=== PATIENT | female | born 1975 | race Caucasian/White ===

== ENCOUNTER 2024-01-02 17:33 | Emergency (ER) | payer SELFPAY ==
[2024-01-02 17:38] VITALS: BP 162/74; PULSE 98; RESP 16; TEMP 36.3; O2SAT 98
--- NOTE | 2024-01-02 17:47 | ED_ITS ---
HPI - Extremity Problem General: Chief complaint: Extremity Problem,Nontraumatic Stated complaint: left foot pain and swollen Time Seen by Provider: 01/02/24 17:34 Source: patient Mode of arrival: ambulatory Limitations: no limitations History of Present Illness: Patient is a nice 48-year-old female presents to ED today with a complaint of left foot/heel pain over the past 5 days or so. She has not had any known injury or trauma. She states pain seems to be worse with weightbearing and does not really have much discomfort at rest. She describes pain as worse in the morning when she first gets out of bed. She has not noticed any swelling to the extremity. She has not noticed any color or temperature changes. Denies numbness or changes in sensation. She is not having any calf pain. MD Complaint: extremity pain Onset (ago): day(s) Pain Consistency: intermittent (with walking/ambulating) Location: left and lower extremity (foot) Radiation: none Relieving factors: rest Exacerbating factors: weight bearing and walking Associated symptoms: Reports no associated symptoms Review of Systems Musc: Reports: extremity pain (L foot); Denies: extremity swelling, joint pain, joint swelling, joint redness or joint warmth Neuro: Denies: numbness in extremities or sensory changes Physical Exam Const: COMMON NORMALS: no acute distress, patient oriented x3, no limitations, alert and well nourished Extremity: COMMON NORMALS: normal to inspection, full ROM, capillary refill normal, no joint enlargement, no clubbing, cyanosis or edema, no calf tenderness and no pedal edema GENERAL: Yes normal exam except as noted LEFT LOWER EXTREMITY: Yes lower leg (no calf pain/swelling; negative Cash's squeeze test) Left lower leg: Yes neurovascular exam (normal) and Yes other (no tenderness to Juan's tendon) and Yes foot & digits (TTP plantar fascia) Left foot and digits: Yes ROM (normal) and Yes neurovascular exam (normal) Neuro: COMMON NORMALS: patient oriented x3, moves all extremities, no focal motor deficits and no sensory deficits noted SENSORIUM/ORIENTATION: Yes alert Course Vital Signs: Vital signs: Vital Signs Temperature 97.4 F L 01/02/24 17:38 Pulse Rate 98 01/02/24 17:38 Respiratory Rate 16 01/02/24 17:38 Blood Pressure 162/74 01/02/24 17:38 Pulse Oximetry 98 01/02/24 17:38 Oxygen Delivery Me thod Room Air 01/02/24 17:38 MDM - Extremity (Nontraumatic) Medical Decision Making History and physical exam is consistent with a left plantar fasciitis. We discussed many conservative therapies at home for this including avoidance of factors. She currently is wearing very poor footwear. We did discuss cushioned footwear including a cushioned heel insert. Discussed NSAIDS. She was provided several handouts on stretches to do at home. Recommend follow up with PCP in 3-4 weeks for continued pain. No radiology studies performed this visit Discharge Plan Discharge Patient Disposition: Home Clinical Impression: Plantar fasciitis of left foot Condition: Stable Discharge Orders: Discharge ED (Routine); Ordered 01/02/24 Ordered By: Susan Buchanan Patient Instructions: Plantar Fasciitis Exercises (GEN), Plantar Fasciitis Exercises (ED), Plantar Fasciitis Activity Restrictions/Additional Instructions: You have been given discharge instructions in regards to plantar fasciitis and things you can do at home to help with this including exercises. You have also been provided additional handouts for these exercises. As we discussed you need to begin wearing a cushioned footwear particularly possibly with a silicone gel heel cushion insert to help with your discomfort. You may take Tylenol and ibuprofen as needed for pain. Coding Level of Care Code ED Microfilm Duplicating Unit Supervisor for Santana Schafer
== END 2024-01-02 18:05 | disposition home or self-care (01) ==
PROVIDERS: Emergency Provider Physician Assistant
DX: M72.2 Plantar fascial fibromatosis (principal)
CPT/HCPCS: 99282

== ENCOUNTER 2024-08-12 20:00 | Emergency (ER) | payer SELFPAY ==
[2024-08-12 20:06] VITALS: BP 106/76; PULSE 101; RESP 20; TEMP 36.7; O2SAT 99; BMI 38.5
--- NOTE | 2024-08-12 20:23 | ED_ITS ---
HPI - Abdominal Pain 2 General: Chief Complaint: Abdominal Pain Stated Complaint: severe pain in low right stomach Time Seen by Provider: 08/12/24 20:15 History of Present Illness: Patient presents to the ER with complaints of right lower quadrant abdominal pain for the last 2 days does come in waves. Patient rates pain a 2 out of 10 all the time but when it pain weight comes she is a 10 out of 10. Patient denies any pain burning frequency dysuria, diarrhea constipation, patient has had a partial hysterectomy with 1 ovary left. Patient does get nauseous when the pain hits. Patient vomited 1 time last night. Pain does increase with movement and vibration in the abdomen patient has had a cholecystectomy but still has her appendix. Related Data Allergies Allergy/AdvReac Type Severity Reaction Status Date / Time calcium carbonate [From DHEA] Allergy Unknown Verified 08/12/24 20:12 calcium phosphate,dibasic Allergy Unknown Verified 08/12/24 20:12 [From DHEA] prasterone (DHEA) [From DHEA] Allergy Unknown Verified 08/12/24 20:12 Review of Systems 2 General: Reports: 10 or more systems reviewed and unremarkable except in HPI and below Physical Exam 2 Const: COMMON NORMALS: no acute distress, average body habitus, patient oriented x3, no limitations, healthy appearing, alert and well nourished HENMT: COMMON NORMALS: normocephalic, atraumatic, hearing grossly normal bilaterally, external ears normal, Normal external nose present and moist oral mucous membranes HEAD & SCALP: normocephalic and atraumatic NOSE: Normal external nose present EXTERNAL EAR: Yes external ears normal Neck/C-Spine: COMMON NORMALS: no JVD Chest: COMMONS NORMALS: normal inspection of the chest and normal palpation of entire chest wall Resp: COMMON NORMALS: normal respiratory effort, No retractions, No use of accessory muscles and clear to auscultation bilaterally AUSCULTATION: clear to auscultation bilaterally Cardio: COMMON NORMALS: no JVD, regular rate, regular rhythm, S1 normal heart sound present, S2 normal heart sound present, No gallops present (Cardio), No clicks present (Cardio), No murmurs present (Cardio) and No rub (Cardio) R ATE: regular rate RHYTHM: regular rhythm HEART SOUNDS: S1 normal heart sound present and S2 normal heart sound present GI: COMMON NORMALS: Normal to inspection, nondistended, normoactive bowel sounds present, Soft to palpation, No hepatosplenomegaly present and no masses; negative for non-tender (Tender to palpate over right lower quadrant, positive rebound) PALPATION: Yes Soft to palpation and Yes No hepatosplenomegaly present Neuro: COMMON NORMALS: patient oriented x3 SENSORIUM/ORIENTATION: Yes alert Course 2 Vital Signs: Vital signs: Vital Signs Temperature 98.1 F 08/12/24 20:06 Pulse Rate 101 H 08/12/24 20:06 Respiratory Rate 20 H 08/12/24 20:06 Blood Pressure 106/76 08/12/24 20:06 Pulse Oximetry 99 08/12/24 20:06 MDM - Abdominal Pain Medical Decision Making After lab was drawn but before it was resulted patient changed her mind decided to leave AGAINST MEDICAL ADVICE. Patient walked right out the door and refused to sign anything. Medical Records I reviewed the patient's medical records. Lab Data I reviewed the patient's lab results. 08/12/24 20:31 08/12/24 20:31 Labs/Radiology: Laboratory Results WBC 10.48 10^3/uL (3.29-11.43) 08/12/24 20: RBC 4.95 10^6/uL (3.85-5.65) 08/12/24 20: Hgb 14.50 g/dL (11.27-16.99) 08/12/24 20: Hct 45.6 % (36-47) 08/12/24 20: MCV 92.1 fl (85-98) 08/12/24 20: MCH 29.3 pg (27-33) 08/12/24 20: MCHC 31.8 g/dL (30-55) 08/12/24 20: RDW 13.2 % (12.1-15.1) 08/12/24 20: Plt Count 275 10^3/cmm (157-399) 08/12/24 20: MPV 10.1 fL (7.4-10.4) 08/12/24 20: Neut % (Auto) 52.9 % 08/12/24 20: Lymph % (Auto) 34.6 % 08/12/24 20: [place] % (Auto) 7.3 % 08/12/24 20:31 Eos % (Auto) 4.4 % 08/12/24 20:31 Baso % (Auto) 0.6 % 08/12/24 20: Neut # (Auto) 5.54 10^3/uL (1.8-7.7) 08/12/24 20:31 Lymph # (Auto) 3.6 10^3/uL (0.8-4.8) 08/12/24 20: [place] # (Auto) 0.8 10^3/uL (0.2-0.9) 08/12/24 20: Eos # (Auto) 0.5 10^3/uL (0.0-0.8) 08/12/24 20: Baso # (Auto) 0.1 10^3/uL (0.0-0.1) 08/12/24 20: Nucleated RBC % (auto) 0 % 08/12/24 20: Nucleated RBCs # 0.0 /100WBC 08/12/24 20:31 Sodium 136 mmol/L (136-145) 08/12/24 20: Potassium 3.8 mmol/L (3.5-5.1) 08/12/24 20: Chloride 100 mmol/L (98-107) 08/12/24 20: Carbon Dioxide 26 mmol/L (22-29) 08/12/24 20:31 Anion Gap 13.8 (5-19) 08/12/24 20: BUN 8 mg/dL (6-20) 08/12/24 20: Creatinine 0.6 mg/dL (0.5-0.9) 08/12/24 20: GFR Calculation 107.2 mL/min (90-130) 08/12/24 20: Glucose 108 mg/dL (65-115) 08/12/24 20: Calculated Osmolality 281 mOsm/kg (285-295) L 08/12/24 20: Calcium 8.7 mg/dL (8.5-10.5) 08/12/24 20: Magnesium 1.9 mg/dL (1.7-2.3) 08/12/24 20: Total Bilirubin 0.3 mg/dL (0.15-1.2) 08/12/24 20: AST 12 U/L (0-32) 08/12/24 20:31 ALT 11 U/L (0-33) 08/12/24 20:31 Alkaline Phosphatase 96 U/L (35-105) 08/12/24 20:31 Total Protein 7.4 g/dL (6.6-8.7) 08/12/24 20:31 Albumin 3.8 g/dL (3.5-5.2) 08/12/24 20:31 Globulin 3.6 g/dL (1.3-4.6) 08/12/24 20:31 Lipase 22 U/L (13-60) 08/12/24 20:31 All radiology interpretation(s) finalized by discharge Discharge Plan Discharge Patient Disposition: Left Against Medical Advice Clinical Impression: Left against medical advice Condition: Stable Patient Instructions: Against Medical Advice (ED) Coding Level of Care Code ED Apprentice Embalmer for Santana Schafer
[2024-08-12 20:49] LABS: Basophils # 0.1 10^3/uL (0.0-0.1); Basophils % 0.6 %; Eosinophils # 0.5 10^3/uL (0.0-0.8); Eosinophils % 4.4 %; Hematocrit 45.6 % (36-47); Lymphocytes # 3.6 10^3/uL (0.8-4.8); Lymphocytes % 34.6 %; Mean Corpuscular HGB Conc 31.8 g/dL (30-55); Mean Corpuscular Hemoglobin 29.3 pg (27-33); Mean Corpuscular Volume 92.1 fl (85-98); Mean Platelet Volume 10.1 fL (7.4-10.4); Monocytes # 0.8 10^3/uL (0.2-0.9); Monocytes % 7.3 %; Neutrophils # 5.54 10^3/uL (1.8-7.7); Neutrophils % 52.9 %; Nucleated Red Blood Cells % 0 %; Platelet Count 275 10^3/cmm (157-399); Red Blood Count 4.95 10^6/uL (3.85-5.65); Red Cell Distribution Width 13.2 % (12.1-15.1); White Blood Count 10.48 10^3/uL (3.29-11.43)
--- NOTE | 2024-08-12 20:50 | PC.NURSE ---
This RN to room to assess pt. Habilitation Assistant student at bedside as well. Habilitation Assistant student obtained IV access and blood, but pt immediately requested IV be pulled out. Pt tearful. Doesn't want to answer questions. Pt states I want to go home. Explained to pt she was able to leave if she wishes. Encouraged pt to stay and at least get some test results back. After this rn went to update doctor, pt got up and dressed and was standing at back door to leave. Requested pt sign AMA form, but pt refused and wanted to leave. MD aware. Encouraged pt to return if symptoms got worse. Pt was ambulatory in NAD when she left.
[2024-08-12 20:55] LABS: Alanine Aminotransferase 11 U/L (0-33); Albumin Level 3.8 g/dL (3.5-5.2); Alkaline Phosphatase 96 U/L (35-105); Anion Gap 13.8 (5-19); Aspartate Amino Transferase 12 U/L (0-32); Blood Urea Nitrogen 8 mg/dL (6-20); Calcium 8.7 mg/dL (8.5-10.5); Carbon Dioxide 26 mmol/L (22-29); Chloride 100 mmol/L (98-107); Creatinine Clr Calc Pharmacy 158.5318; Globulin 3.6 g/dL (1.3-4.6); Glomerular Filtration Rate 107.2 mL/min (90-130); Glucose 108 mg/dL (65-115); Lipase 22 U/L (13-60); Magnesium 1.9 mg/dL (1.7-2.3); Osmolality Calculated 281 mOsm/kg (285-295); Potassium 3.8 mmol/L (3.5-5.1); Sodium 136 mmol/L (136-145); Total Bilirubin 0.3 mg/dL (0.15-1.2); Total Protein 7.4 g/dL (6.6-8.7)
== END 2024-08-12 21:05 | disposition left against medical advice (07) ==
PROVIDERS: Emergency Provider Emergency Medicine
DX: R11.2 Nausea with vomiting, unspecified (principal); Z53.29 Procedure and treatment not carried out because of patient's decision for other reasons; Z90.49 Acquired absence of other specified parts of digestive tract
CPT/HCPCS: 80053; 83690; 83735; 85025; 99283

== ENCOUNTER 2024-08-28 15:22 | Emergency (ER) | payer SELFPAY ==
[2024-08-28 15:36] VITALS: BP 138/105; PULSE 110; RESP 20; TEMP 36.9; O2SAT 98; BMI 38.3
--- NOTE | 2024-08-28 16:07 | CTR_ITS ---
PROCEDURE INFORMATION: Exam: CT Abdomen And Pelvis With Contrast Exam date and time: 08/28/2024 4:22 PM Age: 49 years old Clinical indication: Abdominal pain; Localized; Right lower quadrant (rlq); Prior surgery; Surgery date: 6+ months; Surgery type: Gb; Additional info: Right lower abd pain-persistant TECHNIQUE: Imaging protocol: Computed tomography of the abdomen and pelvis with contrast. Axial, coronal and sagittal reformatted images were created and reviewed. Radiation optimization: All CT scans at this facility use at least one of these dose optimization techniques: automated exposure control; mA and/or kV adjustment per patient size (includes targeted exams where dose is matched to clinical indication); or iterative reconstruction. Contrast material: OMNIPAQUE 350; Contrast volume: 100 ml; Contrast route: INTRAVENOUS (IV); COMPARISON: No relevant prior studies available. RADIATION DOSE METRICS: Total DLP (mGy-cm): 805.03 FINDINGS: Liver: Unremarkable. Gallbladder and biliary ducts: Status post cholecystectomy. No biliary ductal dilatation. Pancreas: Unremarkable. Spleen: Unremarkable. Adrenal glands: Normal. No mass. Kidneys and ureters: No mass. No radiodense calculi. No hydronephrosis. Stomach and bowel: Focal area of masslike wall thickening with associated luminal narrowing in the proximal descending colon with mild upstream fluid distension of the colon. No pneumatosis. Appendix: Normal. Intraperitoneal space: No free fluid. No organized fluid collection. No free air. Vasculature: Unremarkable. No aneurysm. Lymph nodes: No pathologically enlarged lymph nodes. Urinary bladder: Small amount of gas in the nondependent urinary bladder, suggestive of recent instrumentation versus gas producing organism. Reproductive: Status post hysterectomy. Bones/joints: No acute osseous abnormality. Mild degenerative changes. Soft tissues: Unremarkable. CT/CT abdomen pelvis w con* [id number] IMPRESSION: 1. Focal area of masslike wall thickening with associated luminal narrowing in the proximal descending colon with mild upstream fluid distension of the colon. Findings are worrisome for primary colonic malignancy. Colonoscopy is suggested. 2. Small amount of gas in the nondependent urinary bladder, suggestive of recent instrumentation versus gas producing organism. Correlate with urinalysis. 3. Additional findings, as above.
--- NOTE | 2024-08-28 16:08 | W.ED.ABDPA2 ---
HPI - Abdominal Pain General: Chief Complaint: Abdominal Pain Stated Complaint: abd pain, NV Time Seen by Provider: 08/28/24 15:44 Source: patient Mode of arrival: ambulatory Limitations: no limitations History of Present Illness: This patient returns to the emerged part because of her abdominal pain. He is accompanied by her quality system manager who is also encouraged her to come to back to the emergency department because of her pain. She is apparently experiences pain off and on since sometime prior to 12 August. She was in the emergency department that time but left prior to completing her evaluation. She states the pain is been predominantly right lower quadrant but does have some migration to other areas of her abdomen particularly over the left side of her abdomen. She states that eating makes the pain worse. She states she has not eaten the last couple days and subsequently has not had a bowel movement. She states she has no dysuria frequency or hematuria. She denies any fevers or chills or known exposure to infectious disease. She has had a previous hysterectomy as well as a cholecystectomy and a tubal ligation. She is a recovering addict and does admit to using just very recently because of the recurrence of her pain. She denies any history of inflammatory bowel disease. Associated Symptoms: Reports nausea; Denies chills, diarrhea, dysuria, fever(s), hematochezia, hematemesis, melena and syncope Related Data Previous Rx's Medication Instructions Recorded sulfamethoxazole 800 1 tab PO BID 7 days #14 tabs 08/28/24 mg-trimethoprim 160 mg tablet (Bactrim DS) Allergies Allergy/AdvReac Type Severity Reaction Status Date / Time calcium carbonate [From DHEA] Allergy Unknown Verified 08/28/24 15:36 calcium phosphate,dibasic Allergy Unknown Verified 08/28/24 15:36 [From DHEA] prasterone (DHEA) [From DHEA] Allergy Unknown Verified 08/28/24 15:36 Review of Systems Const: Denies: fever(s) or chills ENMT: Denies: throat pain, odynophagia, nasal discharge or nasal congestion Card: Denies: palpitations, syncope or pre-syncope Resp: Denies: dyspnea, productive cough or non-productive cough GI: Reports: abdominal pain and nausea; Denies: hematemesis, diarrhea, hematochezia or melena : Denies: flank pain, difficulty voiding, dysuria or urinary frequency Musc: Denies: neck pain, back pain, extremity pain or extremity swelling Skin/Breast: Denies: rash or pruritus Neuro: Denies: headache(s), numbness in extremities or weakness in extremities Endo: Denies: polyuria or polydipsia Physical Exam Narrative: EXAM NARRATIVE: Anxious and intermittently tearful but answers questions in a goal-directed fashion. She is cooperative. Const: COMMON NORMALS: patient oriented x3 and alert GENERAL APPEARANCE: cooperative and anxious NUTRITIONAL APPEARANCE: overweight HENMT: COMMON NORMALS: Normal nasal mucous membranes and turbinates present, moist oral mucous membranes and oropharynx normal NOSE: Normal nasal mucous membranes and turbinates present Eye: COMMON NORMALS: Equal, round and reactive pupils present, EOMs intact bilaterally, conjunctivae normal and no scleral icterus CONJUNCTIVA: Yes conjunctivae normal PUPIL: Yes Equal, round and reactive pupils present Neck/C-Spine: COMMON NORMALS: full ROM and no lymphadenopathy Chest: COMMONS NORMALS: normal inspection of the chest Resp: COMMON NORMALS: normal respiratory effort, No retractions, No use of accessory muscles and clear to auscultation bilaterally AUSCULTATION: clear to auscultation bilaterally Cardio: COMMON NORMALS: regular rate, regular rhythm, No murmurs present (Cardio) and Peripheral pulses 2+ throughout RATE: regular rate RHYTHM: regular rhythm PERIPHERAL PULSES: Peripheral pulses 2+ throughout GI: COMMON NORMALS: Normal to inspection, nondistended, normoactive bowel sounds present and Soft to palpation AUSCULTATION: Yes Hyperactive bowel sounds present PALPATION: Yes Soft to palpation and Yes Tenderness to palpation present (GI) (No rebound mild voluntary guarding) Details: LLQ and RLQ : COMMON NORMALS: Yes no CVA tenderness BLADDER/KIDNEY EXAM: Yes no CVA tenderness Back/Pelvis: COMMON NORMALS: no CVA tenderness, thoracic and lumbar spine normal to inspection, no thoracic nor lumbar tenderness and thoraco-lumbar ROM normal Extremity: COMMON NORMALS: normal to inspection, full ROM, capillary refill normal and no joint enlargement Neuro: COMMON NORMALS: patient oriented x3, moves all extremities, no focal motor deficits and no sensory deficits noted SENSORIUM/ORIENTATION: Yes alert CRANIAL NERVES: Yes CN normal except as noted Psych: COMMON NORMALS: mental status grossly normal and speech normal SPEECH: Yes normal speech MOOD & AFFECT: Yes anxious and Yes tearful Skin: COMMON NORMALS: no rashes or lesions noted and turgor normal GENERAL SKIN EXAM: no rashes or lesions noted and turgor normal Course Reevaluation(s): Reevaluation #1: Patient remains clinically stable. I reviewed her findings to include her CT scan as well as her urinalysis. Will start her on antibiotic pending culture and have also discussed with Dr. Hightower the general surgeon regarding follow-up and also informed the patient of her CT scan and need for colonoscopy which he voices understanding. I informed her that she needs to call Dr. Hightower but have also placed a case management consultation to make sure that we have complete that process. She is stable at this time to be discharged for continued follow-up Time: 18:32 Consultations: Consultation #1: Discussed with on-call surgeon Dr. Hightower reviewed the CT scan report. He will need to see her in the office in the next 2 to 3 days so they can evaluate her and schedule for a colonoscopy and additional workup as indicated. Time: 17:29 Vital Signs: Vital signs: Vital Signs Temperature 98.5 F 08/28/24 15:36 Pulse Rate 81 08/28/24 18:09 Respiratory Rate 17 08/28/24 18:09 Blood Pressure 120/78 08/28/24 18:09 Pulse Oximetry 93 08/28/24 18:09 Oxygen Delivery Me thod Room Air 08/28/24 18:09 MDM - Abdominal Pain Medical Decision Making Patient presented with a several week history of lower abdominal pain as noted in the HPI. No specific constellation of symptoms to provide strong insight although she does have her appendix still. Clinical examination revealed nonspecific abdominal discomfort without any rebound guarding or peritoneal signs. Laboratories and imaging were ordered to evaluate her abdominal pain. Imaging was notable for a focal area of colonic narrowing without obstruction. Also urinalysis was notable for evidence of infection with positive nitrite urine as well as pyuria and bacteria. Consultation was obtained with general surgery who will provide follow-up for additional workup of her colon. Patient was informed of all these findings and the need for close follow-up. She voiced understanding and is stable at this time without any evidence of an acute emergency medical condition. Lab Data I reviewed the patient's lab results. 08/28/24 16:06 08/28/24 16:06 Labs/Radiology: Radiology Impressions Abdomen/Pelvis CT 08/28/24 16:07 IMPRESSION: 1. Focal area of masslike wall thickening with associated luminal narrowing in the proximal descending colon with mild upstream fluid distension of the colon. Findings are worrisome for primary colonic malignancy. Colonoscopy is suggested. 2. Small amount of gas in the nondependent urinary bladder, suggestive of recent instrumentation versus gas producing organism. Correlate with urinalysis. 3. Additional findings, as above. Laboratory Results WBC 10.67 10^3/uL (3.29-11.43) 08/28/24 16:06 RBC 5.34 10^6/uL (3.85-5.65) 08/28/24 16:06 Hgb 15.80 g/dL (11.27-16.99) 08/28/24 16:06 Hct 48.3 % (36-47) H 08/28/24 16:06 MCV 90.4 fl (85-98) 08/28/24 16:06 MCH 29.6 pg (27-33) 08/28/24 16:06 MCHC 32.7 g/dL (30-55) 08/28/24 16:06 RDW 12.8 % (12.1-15.1) 08/28/24 16:06 Plt Count 327 10^3/cmm (157-399) 08/28/24 16:06 MPV 9.9 fL (7.4-10.4) 08/28/24 16:06 Neut % (Auto) 55.1 % 08/28/24 16:06 Lymph % (Auto) 34.9 % 08/28/24 16:06 [place] % (Auto) 6.3 % 08/28/24 16:06 Eos % (Auto) 2.8 % 08/28/24 16:06 Baso % (Auto) 0.7 % 08/28/24 16:06 Neut # (Auto) 5.88 10^3/uL (1.8-7.7) 08/28/24 16:06 Lymph # (Auto) 3.7 10^3/uL (0.8-4.8) 08/28/24 16:06 [place] # (Auto) 0.7 10^3/uL (0.2-0.9) 08/28/24 16:06 Eos # (Auto) 0.3 10^3/uL (0.0-0.8) 08/28/24 16:06 Baso # (Auto) 0.1 10^3/uL (0.0-0.1) 08/28/24 16:06 Nucleated RBC % (auto) 0 % 08/28/24 16:06 Nucleated RBCs # 0.0 /100WBC 08/28/24 16:06 Sodium 138 mmol/L (136-145) 08/28/24 16:06 Potassium 3.7 mmol/L (3.5-5.1) 08/28/24 16:06 Chloride 100 mmol/L (98-107) 08/28/24 16:06 Carbon Dioxide 24 mmol/L (22-29) 08/28/24 16:06 Anion Gap 17.7 (5-19) 08/28/24 16:06 BUN 12 mg/dL (6-20) 08/28/24 16:06 Creatinine 0.7 mg/dL (0.5-0.9) 08/28/24 16:06 GFR Calculation 89.7 mL/min (90-130) L 08/28/24 16:06 Glucose 99 mg/dL (65-115) 08/28/24 16:06 Calculated Osmolality 286 mOsm/kg (285-295) 08/28/24 16:06 Calcium 9.0 mg/dL (8.5-10.5) 08/28/24 16:06 Total Bilirubin 0.4 mg/dL (0.15-1.2) 08/28/24 16:06 AST 13 U/L (0-32) 08/28/24 16:06 ALT 14 U/L (0-33) 08/28/24 16:06 Alkaline Phosphatase 114 U/L (35-105) H 08/28/24 16:06 Total Protein 7.4 g/dL (6.6-8.7) 08/28/24 16:06 Albumin 4.4 g/dL (3.5-5.2) 08/28/24 16:06 Globulin 3.0 g/dL (1.3-4.6) 08/28/24 16:06 Lipase 19 U/L (13-60) 08/28/24 16:06 Urine Color Dark yellow (Yellow) A 08/28/24 16:56 Urine Appearance Clear (CLEAR) 08/28/24 16:56 Urine pH 5.5 (5-7) 08/28/24 16:56 Ur Specific [place] 1.043 (1.005-1.030) H 08/28/24 16:56 Urine Protein Trace (Negative) A 08/28/24 16:56 Urine Glucose (UA) Negative (Normal) 08/28/24 16:56 Urine Ketones 2+ (Negative) H 08/28/24 16:56 Urine Blood 1+ (Negative) A 08/28/24 16:56 Urine Nitrate Positive (Negative) A 08/28/24 16:56 Urine Bilirubin 1+ (Negative) H 08/28/24 16:56 Urine Urobilinogen 1.0 mg/dL (Negative) 08/28/24 16:56 Ur Leukocyte Esterase Trace (Negative) A 08/28/24 16:56 Urine RBC 0-2 /hpf (0-2) 08/28/24 16:56 Urine WBC 11-20 /hpf (0-5) H 08/28/24 16:56 Ur Squamous Epith Cells 6-10 /hpf (0-5) 08/28/24 16:56 Amorphous Sediment Not Reportable 08/28/24 16:56 Urine Bacteria 3+ /hpf (NONE) H 08/28/24 16:56 Hyaline Casts 19.02 /lpf 08/28/24 16:56 All radiology interpretation(s) finalized by discharge Discharge Plan Discharge Patient Disposition: Home Clinical Impression: Colonic mass, Urinary tract infection Condition: Stable Prescriptions: New sulfamethoxazole-trimethoprim [Bactrim DS] 800-160 mg tablet 1 tab PO BID 7 Days Qty: 14 0RF Discharge Orders: Discharge ED (Routine); Ordered 08/28/24 Ordered By: Chu Sanchez Referrals: Wang Hightower MD [Physician] - 1-3 days Discharge Diet: Advance as tolerated Discharge Activity: Increase activity as tolerated Patient Instructions: Opioid Safety, Pain Management Activity Restrictions/Additional Instructions: As we discussed you need to call Dr. Hightower's office tomorrow. Phone number is office is [phone]. We have also provided a medication to treat your urinary tract infection. If you have any new or worsening symptoms or other concerns you are welcome to return to the emergency department for reevaluation. Coding Level of Care Code ED Customer Field Representative for Santana Schafer
[2024-08-28 16:19] LABS: Basophils # 0.1 10^3/uL (0.0-0.1); Basophils % 0.7 %; Eosinophils # 0.3 10^3/uL (0.0-0.8); Eosinophils % 2.8 %; Hematocrit 48.3 % (36-47); Lymphocytes # 3.7 10^3/uL (0.8-4.8); Lymphocytes % 34.9 %; Mean Corpuscular HGB Conc 32.7 g/dL (30-55); Mean Corpuscular Hemoglobin 29.6 pg (27-33); Mean Corpuscular Volume 90.4 fl (85-98); Mean Platelet Volume 9.9 fL (7.4-10.4); Monocytes # 0.7 10^3/uL (0.2-0.9); Monocytes % 6.3 %; Neutrophils # 5.88 10^3/uL (1.8-7.7); Neutrophils % 55.1 %; Nucleated Red Blood Cells % 0 %; Platelet Count 327 10^3/cmm (157-399); Red Blood Count 5.34 10^6/uL (3.85-5.65); Red Cell Distribution Width 12.8 % (12.1-15.1); White Blood Count 10.67 10^3/uL (3.29-11.43)
[2024-08-28] MEDS: iohexol 350 mg/mL 500 mL Btl (per mL) IV (16:24)
[2024-08-28 16:44] LABS: Alanine Aminotransferase 14 U/L (0-33); Albumin Level 4.4 g/dL (3.5-5.2); Alkaline Phosphatase 114 U/L (35-105); Aspartate Amino Transferase 13 U/L (0-32); Blood Urea Nitrogen 12 mg/dL (6-20); Carbon Dioxide 24 mmol/L (22-29); Chloride 100 mmol/L (98-107); Creatinine Clr Calc Pharmacy 135.1739; Glomerular Filtration Rate 89.7 mL/min (90-130); Glucose 99 mg/dL (65-115); Lipase 19 U/L (13-60); Osmolality Calculated 286 mOsm/kg (285-295); Sodium 138 mmol/L (136-145); Total Bilirubin 0.4 mg/dL (0.15-1.2); Total Protein 7.4 g/dL (6.6-8.7)
[2024-08-28 16:49] LABS: Anion Gap 17.7 (5-19); Potassium 3.7 mmol/L (3.5-5.1)
[2024-08-28] MEDS: ondansetron 2 mg/ML SDV 2 mL 4 MG IVP (16:58)
[2024-08-28] MEDS: lactated ringers 1,000 ML 999 ML IV (16:58)
[2024-08-28 17:07] LABS: Bilirubin Urine 1+ (Negative); Blood Urine 1+ (Negative); Glucose Urine UA Negative (Normal); Ketones Urine 2+ (Negative); Leukocyte Esterase Urine Trace (Negative); Nitrate Urine Positive (Negative); Protein Urine Trace (Negative); Urine Appearance Clear (CLEAR); Urine Color Dark Yellow (Yellow); pH Urine 5.5 (5-7)
[2024-08-28 17:12] LABS: Add Urine Microscopic? YES; Hyaline Casts Urine 19.02 /lpf; RBC Urine 0-2 /hpf (0-2)
[2024-08-28 17:32] LABS: Specific Gravity, Urine 1.043 (1.005-1.030)
[2024-08-28 17:33] LABS: Add Urine Culture? Yes; Bacteria Urine 3+ /hpf
[2024-08-28 17:46] VITALS: PULSE 88; RESP 17; O2SAT 98
[2024-08-28 17:51] VITALS: PULSE 85; RESP 17; O2SAT 98
[2024-08-28 18:09] VITALS: BP 120/78; PULSE 81; RESP 17; O2SAT 93
[2024-08-28] MEDS: sulfamethoxazole-trimeth DS 160-800 mg Tablet 1 TAB PO (18:50)
[2024-08-28 19:04] VITALS: BP 122/60; PULSE 90; RESP 18; O2SAT 94
--- NOTE | 2024-08-29 07:29 | DCPLANNER ---
message gen surg for er f/u
== END 2024-08-28 19:05 | disposition home or self-care (01) ==
PROVIDERS: Emergency Provider Emergency Medicine
DX: K63.89 Other specified diseases of intestine (principal); N39.0 Urinary tract infection, site not specified
CPT/HCPCS: 74177; 80053; 81001; 83690; 85025; 87077; 87086; 87186; 96374; 99285; J2405; J7120

== ENCOUNTER 2024-11-24 10:00 | Inpatient (IN) | payer SELFPAY ==
[2024-11-24] VITALS (7 sets, daily range): BP systolic 93–139; BP diastolic 52–99; PULSE 68–105; RESP 14–20; TEMP 36.5–37.3; O2SAT 94–100; BMI 39.0; BMI 38.3
--- NOTE | 2024-11-24 10:06 | CT_ITS ---
WS: [id number] CT ABDOMEN AND PELVIS WITH CONTRAST HISTORY: abd pain, LEFT upper quadrant pain with nausea and vomiting. TECHNIQUE: Imaging performed of the abdomen and pelvis with IV contrast. Single phase imaging of the abdomen. Coronal and sagittal reformats are submitted. All CT scans at [facility] use at least one of these dose optimization techniques: automated exposure control; mA and/or kV adjustment per patient size (includes targeted exams where dose is matched to clinical indication); or iterative reconstruction. IV CONTRAST: Omnipaque 350; 100 mL IV. Oral contrast: No DLP: 776.35 mGy.cm COMPARISON: 08/28/2024 Lower thorax: Lung bases are clear. Heart is normal size. No hiatal hernia. Liver/biliary system: Normal size with no intrahepatic dilatation. Gallbladder: Prior cholecystectomy. Pancreas: Normal size pancreas and pancreatic duct. No adjacent inflammation. Spleen: Normal size spleen. No mass or infarct. Adrenal glands: Normal. Right kidney: Normal. Left kidney: Normal. Aorta: Normal. Lymphadenopathy: There are a few small lymph nodes in the LEFT upper quadrant associated with the colon lesion. Free fluid: Small amount of free fluid in the pelvis. GI tract: Marked distention of the stomach with fluid. Mid to distal dilated small bowel loops. Marked fluid distention involving the ascending and transverse colon and splenic flexure. There is an obstructing colon lesion involving the proximal descending colon extending over a length of 4.7 cm. This was also described on 08/28/2024. Marked narrowing of the lumen causing the more proximal obstruction. Distal sigmoid contains a few diverticula. The appendix is identified and normal. There is a small amount of fluid adjacent to the appendix. Abdominal wall: Unremarkable abdominal wall. No hernia. Pelvis: Small amount of free fluid. Free fluid in the pelvis and in the RIGHT paracolic gutter. Prior hysterectomy. Bones: Unremarkable. CT/CT abdomen pelvis w con* [id number] IMPRESSION: 1. High-grade colon and small bowel obstruction secondary to an obstructing le yasmany involving the proximal descending colon. Circumferential colon mass extend s over a length of 4.7 cm. Colonoscopy is recommended. Highly suspicious for pr imary colon cancer. 2. Small lymph nodes adjacent to the descending colon mass. 3. Small amount of free fluid in the pelvis. 4. No free air. 5. Prior cholecystectomy. 6. There is a small amount of fluid in the RIGHT paracolic gutter associated w ith the appendix. The appendix does appear normal.
--- NOTE | 2024-11-24 10:07 | ED_ITS ---
HPI - Abdominal Pain 2 General: Chief Complaint: Nausea/Vomiting/Diarrhea Stated Complaint: n/v, abd pain Time Seen by Provider: 11/24/24 10:03 Source: patient and EMS Mode of arrival: EMS Limitations: no limitations History of Present Illness: 49-year-old female who states that she h as been having diffuse abdominal pain along with vomiting is been going on last few days. She states the pain is sharp in nature rates today 7 out of 10 she states she had multiple episodes of vomiting she denies any diarrhea she denies any fevers denies any worse improving factors she did receive some nausea medicine and route. Associated Symptoms: Reports nausea and vomiting; Denies chills, diarrhea, dysuria and fever(s) Related Data Home Medications ?Medication ?Instructions ?Recorded ?Confirmed acetaminophen 500 mg tablet 500 mg PO Q6H PRN Pain 04/1211/24/24 Allergies Allergy/AdvReac Type Severity Reaction Status Date / Time calcium carbonate (From DHEA) Allergy Unknown Verified 08/28/24 15:36 calcium phosphate,dibasic Allergy Unknown Verified 08/28/24 15:36 (From DHEA) prasterone (DHEA) (From DHEA) Allergy Unknown Verified 08/28/24 15:36 Review of Systems 2 Const: Denies: fever(s), chills, body aches or change in appetite ENMT: Denies: throat pain or dental pain Card: Denies: chest pain Resp: Denies: dyspnea GI: Reports: abdominal pain, nausea and vomiting; Denies: diarrhea : Denies: dysuria Musc: Denies: neck pain or back pain Skin/Breast: Denies: rash Neuro: Denies: headache(s) Physical Exam 2 Const: COMMON NORMALS: no acute distress, patient oriented x3 and healthy appearing HENMT: COMMON NORMALS: normocephalic and atraumatic HEAD & SCALP: n ormocephalic and atraumatic Eye: COMMON NORMALS: conjunctivae normal CONJUNCTIVA: Yes conjunctivae normal Neck/C-Spine: COMMON NORMALS: full ROM and supple Chest: COMMONS NORMALS: normal inspection of the chest Resp: COMMON NORMALS: normal respiratory effort, No retractions, No use of accessory muscles and clear to auscultation bilaterally AUSCULTATION: clear to auscultation bilaterally Cardio: COMMON NORMALS: regular rate, regular rhythm and No murmurs present (Cardio) RATE: regular rate RHYTHM: regular rhythm GI: COMMON NORMALS: Normal to inspection, nondistended, normoactive bowel sounds present, Soft to palpation, non-tender and no masses PALPATION: Yes Soft to palpation Extremity: COMMON NORMALS: normal to inspection and full ROM Neuro: COMMON NORMALS: patient oriented x3, moves all extremities and no focal motor deficits Psych: COMMON NORMALS: mental status grossly normal, Normal thought process present and cooperative THOUGHT PROCESS: Normal thought process present Skin: COMMON NORMALS: no rashes or lesions noted and no wounds GENERAL SKIN EXAM: no rashes or lesions noted Course 2 Vital Signs: Vital signs: Vital Signs Temperature 99.1 F 11/24/24 10:03 Pulse Rate 90 11/24/24 11:22 Respiratory Rate 19 H 11/24/24 10:03 Blood Pressure 139/99 11/24/24 11:22 Pulse Oximetry 97 11/24/24 11:22 Oxygen Delivery Me thod Room Air 11/24/24 11:22 MDM - Abdominal Pain Medical Decision Making Patient presents here with vomiting CT shows small bowel obstruction with a possible colon mass I have spoke to surgery along with hospitalist will admit at this time we will place NG tube in the ER. Medical Records I reviewed the patient's medical records. Lab Data I reviewed the patient's lab results. 11/24/24 09:39 11/24/24 09:39 Labs/Radiology: Radiology Impressions Abdomen/Pelvis CT 11/24/24 10:06 IMPRESSION: 1. High-grade colon and small bowel obstruction secondary to an obstructing lesion involving the proximal descending colon. Circumferential colon mass extends over a length of 4.7 cm. Colonoscopy is recommended. Highly suspicious for primary colon cancer. 2. Small lymph nodes adjacent to the descending colon mass. 3. Small amount of free fluid in the pelvis. 4. No free air. 5. Prior cholecystectomy. 6. There is a small amount of fluid in the RIGHT paracolic gutter associated with the appendix. The appendix does appear normal. Laboratory Results WBC 16.51 10^3/uL (3.29-11.43) H 11/24/24 09:39 RBC 5.87 10^6/uL (3.85-5.65) H 11/24/24 09:39 Hgb 17.30 g/dL (11.27-16.99) H 11/24/24 09:39 Hct 52.7 % (36-47) H 11/24/24 09:39 MCV 89.8 fl (85-98) 11/24/24 09:39 MCH 29.5 pg (27-33) 11/24/24 09:39 MCHC 32.8 g/dL (30-55) 11/24/24 09:39 RDW 12.7 % (12.1-15.1) 11/24/24 09:39 Plt Count 401 10^3/cmm (157-399) H 11/24/24 09:39 MPV 10.6 fL (7.4-10.4) H 11/24/24 09:39 Neut % (Auto) 74.8 % 11/24/24 09:39 Lymph % (Auto) 17.7 % 11/24/24 09:39 Terrell % (Auto) 6.8 % 11/24/24 09:39 Eos % (Auto) 0.1 % 11/24/24 09:39 Baso % (Auto) 0.2 % 11/24/24 09:39 Neut # (Auto) 12.36 10^3/uL (1.8-7.7) H 11/24/24 09:39 Lymph # (Auto) 2.9 10^3/uL (0.8-4.8) 11/24/24 09:39 Terrell # (Auto) 1.1 10^3/uL (0.2-0.9) H 11/24/24 09:39 Eos # (Auto) 0.0 10^3/uL (0.0-0.8) 11/24/24 09:39 Baso # (Auto) 0.0 10^3/uL (0.0-0.1) 11/24/24 09:39 Nucleated RBC % (auto) 0 % 11/24/24 09:39 Nucleated RBCs # 0.0 /100WBC 11/24/24 09:39 Sodium 137 mmol/L (136-145) 11/24/24 09:39 Potassium 4.6 mmol/L (3.5-5.1) 11/24/24 09:39 Chloride 94 mmol/L (98-107) L 11/24/24 09:39 Carbon Dioxide 26 mmol/L (22-29) 11/24/24 09:39 Anion Gap 21.6 (5-19) H 11/24/24 09:39 BUN 21 mg/dL (6-20) H 11/24/24 09:39 Creatinine 0.8 mg/dL (0.5-0.9) 11/24/24 09:39 GFR Calculation 76.9 mL/min (90-130) L 11/24/24 09:39 Glucose 124 mg/dL (65-115) H 11/24/24 09:39 Calculated Osmolality 288 mOsm/kg (285-295) 11/24/24 09:39 Calcium 10.1 mg/dL (8.5-10.5) 11/24/24 09:39 Total Bilirubin 0.4 mg/dL (0.15-1.2) 11/24/24 09:39 AST 20 U/L (0-32) 11/24/24 09:39 ALT 19 U/L (0-33) 11/24/24 09:39 Alkaline Phosphatase 139 U/L (35-105) H 11/24/24 09:39 Total Protein 8.4 g/dL (6.6-8.7) 11/24/24 09:39 Albumin 4.7 g/dL (3.5-5.2) 11/24/24 09:39 Globulin 3.7 g/dL (1.3-4.6) 11/24/24 09:39 Lipase 18 U/L (13-60) 11/24/24 09:39 All radiology interpretation(s) finalized by discharge Discharge Plan Discharge Patient Disposition: Admitted As Inpatient Clinical Impression: Small bowel obstruction Condition: Stable Prescriptions: No Action acetaminophen 500 mg Tablet 500 mg PO Q6H PRN (Reason: Pain) Print Language: Kiswahili Coding Level of Care Code ED [employer] Program Coordinator for Santana Schafer
[2024-11-24 10:22] LABS: Basophils % 0.2 %; Eosinophils % 0.1 %; Hematocrit 52.7 % (36-47); Lymphocytes # 2.9 10^3/uL (0.8-4.8); Lymphocytes % 17.7 %; Mean Corpuscular HGB Conc 32.8 g/dL (30-55); Mean Corpuscular Hemoglobin 29.5 pg (27-33); Mean Corpuscular Volume 89.8 fl (85-98); Mean Platelet Volume 10.6 fL (7.4-10.4); Monocytes # 1.1 10^3/uL (0.2-0.9); Monocytes % 6.8 %; Neutrophils # 12.36 10^3/uL (1.8-7.7); Neutrophils % 74.8 %; Nucleated Red Blood Cells % 0 %; Platelet Count 401 10^3/cmm (157-399); Red Blood Count 5.87 10^6/uL (3.85-5.65); Red Cell Distribution Width 12.7 % (12.1-15.1); White Blood Count 16.51 10^3/uL (3.29-11.43)
[2024-11-24] MEDS: morphine 4 mg/mL SDV 1 mL IVP (10:34)
[2024-11-24 10:55] LABS: Alanine Aminotransferase 19 U/L (0-33); Albumin Level 4.7 g/dL (3.5-5.2); Alkaline Phosphatase 139 U/L (35-105); Aspartate Amino Transferase 20 U/L (0-32); Blood Urea Nitrogen 21 mg/dL (6-20); Calcium 10.1 mg/dL (8.5-10.5); Carbon Dioxide 26 mmol/L (22-29); Chloride 94 mmol/L (98-107); Creatinine Clr Calc Pharmacy 87.2668; Globulin 3.7 g/dL (1.3-4.6); Glomerular Filtration Rate 76.9 mL/min (90-130); Glucose 124 mg/dL (65-115); Lipase 18 U/L (13-60); Osmolality Calculated 288 mOsm/kg (285-295); Sodium 137 mmol/L (136-145); Total Bilirubin 0.4 mg/dL (0.15-1.2); Total Protein 8.4 g/dL (6.6-8.7)
[2024-11-24 10:58] LABS: Anion Gap 21.6 (5-19); Potassium 4.6 mmol/L (3.5-5.1)
[2024-11-24] MEDS: iohexol 350 mg/mL 500 mL Btl (per mL) IV (11:10)
--- NOTE | 2024-11-24 12:13 | XR_ITS ---
WS: [id number] Portable AP upright chest, 11/24/2024 Clinical Data: NG TUBE PLACEMENT Comparison: PA chest with left rib detail, 11/11/2016 Findings: The nasogastric tube appears to be in the esophagus and it has doubled back on itself in the fundus of the stomach. There is minimal atelectasis at both lung bases. No acute cardiopulmonary disease is seen. No nodules, masses or effusions are seen. The heart is normal. The pulmonary vascularity is not increased. No pneumonia or pneumothorax is seen. There are monitor leads on the chest wall. There are cholecystectomy clips in the right upper quadrant. There are calcifications to the right of the L2 vertebral body. XR/XR chest 1V portable [id number] Impression: Nasogastric tube ends in fundus of the stomach.
[2024-11-24 12:21] LABS: Influenza A NEGATIVE (Negative); Influenza B NEGATIVE (Negative); Respiratory Syncytial Virus Ce NEGATIVE (Negative); SARS-CoV-2 PCR NEGATIVE (Negative)
[2024-11-24] MEDS: sodium chloride 0.9% 1,000 ML 150 ML IV ×2 (14:10→17:53)
--- NOTE | 2024-11-24 14:14 | P.HP_ITS ---
Providers/Chief Complaint 2 Admitting Physician: Frankie Tompkins MD Chief Complaint: n/v, abd pain History of Present Illness Sydnee Khanna is a 49 year old female with no significant past medical history, is a smoker, history of heart attack in her 20s, who presents [facility] for abdominal pain, nausea, vomiting, last bowel movement was yesterday. She denies any blood or black stools does report poor appetite does report weight loss, she tells me for the last few days she has has diffuse abdominal pain, nausea, vomiting, poor appetite no lightheadedness, no dizziness, no chest pain or palpitations, no dysuria, no hematuria. She tells me that back in August 2024 she was told that she had a colonic mass on her CT scan when she went to the emergency room however she could not afford to follow-up with a primary care. She denies a family history of colon cancer or cancers. She tells me that in her 20s she had a heart attack which we can do her heart muscles, but no history of stenting Review of Systems 2 Const: Reports: change in weight, fatigue and malaise; Denies: fever(s) or chills Card: Denies: chest pain Resp: Denies: dyspnea GI: Reports: abdominal pain : Denies: flank pain Neuro: Denies: headache(s) Medications/Allergies Home Medications ?Medication ?Instructions ?Recorded ?Confirmed ?Last Taken ?Type acetaminophen 500 mg tablet 500 mg PO Q6H PRN Pain 04/1211/24/24 Unknown History Allergies Allergy/AdvReac Type Severity Reaction Status Date / Time calcium carbonate (From DHEA) Allergy Unknown Verified 08/28/24 15:36 calcium phosphate,dibasic Allergy Unknown Verified 08/28/24 15:36 (From DHEA) prasterone (DHEA) (From DHEA) Allergy Unknown Verified 08/28/24 15:36 PFSH Acute 2 PFSH: Surgical History (Updated 11/24/24 @ 14:18 by Frankie Tompkins MD) History of cholecystectomy No pertinent past surgical history Social History (Updated 11/24/24 @ 14:16 by Frankie Tompkins MD) Smoking and tobacco/nicotine status: current every day tobacco/nicotine user Alcohol intake: never Substance/Drug Use: never Vitals/I&O/Wt Last Vital Signs Temp 99.1 F 11/24/24 10:03 Pulse 90 11/24/24 11:22 Resp 19 H 11/24/24 10:03 BP 139/99 11/24/24 11:22 Pulse Ox 97 11/24/24 11:22 O2 Del Method Room Air 11/24/24 11:22 Weight last 48 hrs Weight 90.718 kg Physical Exam 2 Const: COMMON NORMALS: no acute distress and patient oriented x3 Eye: COMMON NORMALS: Equal, round and reactive pupils present and EOMs intact bilaterally Neck/C-Spine: OTHER: NG tube in place Resp: COMMON NORMALS: normal respiratory effort, No retractions, No use of accessory muscles and clear to auscultation bilaterally AUSCULTATION: clear to auscultation bilaterally Cardio: COMMON NORMALS: regular rate, regular rhythm, S1 normal heart sound present and S2 normal heart sound present RATE: regular rate RHYTHM: r egular rhythm HEART SOUNDS: S1 normal heart sound present and S2 normal heart sound present GI: OTHER: Abdomen soft, slightly distended, no guarding, no rebound, rigidity, does have the diffuse tenderness, diminished bowel sounds Extremity: COMMON NORMALS: no pedal edema Neuro: COMMON NORMALS: patient oriented x3 and moves all extremities Psych: COMMON NORMALS: mental status grossly normal Data 11/24/24 09:39 11/24/24 09:39 A&P Assessment and plan (1) Small bowel obstruction: Plan CCESSION #: [id number] CT/CT abdomen pelvis w con* [id number] IMPRESSION: 1. High-grade colon and small bowel obstruction secondary to an obstructing lesion involving the proximal descending colon. Circumferential colon mass extends over a length of 4.7 cm. Colonoscopy is recommended. Highly suspicious for primary colon cancer. 2. Small lymph nodes adjacent to the descending colon mass. 3. Small amount of free fluid in the pelvis. 4. No free air. 5. Prior cholecystectomy. 6. There is a small amount of fluid in the RIGHT paracolic gutter associated with the appendix. The appendix does appear normal. -With erythrocytosis -Leukocytosis Plan -NG tube in place -Keep n.p.o. -IV fluids -Zofran, Reglan for nausea -Morphine for pain control -Erythrocytosis could be from colonic mass, smoking, will obtain a UA -Leukocytosis, CRP, Pro-Roger, blood cultures, UA -Monitor abdomen closely -Full code -Lovenox for DVT prophylaxis -General Surgery has been consulted PDMP PDMP Reviewed: Not Reviewed Attestations 2 Medical Necessity Statement*: Patient requires hospitalization, inpatient, greater than 2 minutes, for high- grade colon and small bowel obstruction secondary to obstructing lesion in the proximal descending colon, dehydration Diagnoses Small bowel obstruction K56.609
[2024-11-24] MEDS: pantoprazole 40 mg SDV IVP (14:36)
[2024-11-24] MEDS: enoxaparin 40 mg/0.4 mL Syringe SUBCUT (14:36)
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
[2024-11-24] MEDS: metoclopramide 5 mg/mL SDV 2 mL IVP (15:02)
[2024-11-24 17:47] LABS: INR 0.93 (0.8-1.2)
[2024-11-24 17:48] LABS: Partial Thromboplastin Time 27.1 SECONDS (23.9-36.7)
[2024-11-24 17:55] LABS: HCG Quantitative < 1.00 mIU/mL
[2024-11-24 18:06] LABS: NT Pro B Type Natriuretic Pept 85 pg/mL (0-125); Procalcitonin 0.06 ng/mL (0-0.5); Thyroid Stimulating Hormone 3.71 uIU/mL (0.27-4.20)
[2024-11-24 18:26] LABS: Lactic Sepsis W/Reflex 0.8 mmol/L (0.5-2.2)
[2024-11-24 18:38] LABS: C Reactive Protein 6.4 mg/L (0.0-4.9); Chol HDL Ratio 2.83 mg/dL (0.0-4.40); Cholesterol 153 mg/dL (0-200); HDL Cholesterol 54 mg/dL (60-100); LDL Cholesterol Calculated 68 mg/dL (50-129); LDL HDL Ratio 1.26 RATIO (0.00-3.22); Triglycerides 153 mg/dL (0-150)
[2024-11-24 19:58] LABS: Estmated Average Glucose 108; Hemoglobin A1C 5.4 % (4.0-6.0)
[2024-11-24 21:11] LABS: Carcinoembryonic Antigen 3.7 ng/mL (0.0-4.7)
[2024-11-25] VITALS: BP 100/59; PULSE 102; RESP 19; TEMP 36.7; O2SAT 94
[2024-11-25] MEDS: pantoprazole 40 mg SDV IVP ×2 (01:15→14:27)
[2024-11-25] MEDS: sodium chloride 0.9% 1,000 ML 150 ML IV ×3 (01:15→15:43)
[2024-11-25 04:00] VITALS: BP 112/52; PULSE 102; RESP 17; TEMP 36.8; O2SAT 90
[2024-11-25 05:47] LABS: Basophils # 0.1 10^3/uL (0.0-0.1); Basophils % 0.6 %; Eosinophils # 0.1 10^3/uL (0.0-0.8); Eosinophils % 0.9 %; Hematocrit 41.3 % (36-47); Lymphocytes # 3.5 10^3/uL (0.8-4.8); Lymphocytes % 34.5 %; Mean Corpuscular Volume 93.9 fl (85-98); Mean Platelet Volume 10.4 fL (7.4-10.4); Monocytes # 0.9 10^3/uL (0.2-0.9); Monocytes % 8.6 %; Neutrophils % 55.1 %; Nucleated Red Blood Cells % 0 %; Platelet Count 263 10^3/cmm (157-399); White Blood Count 9.99 10^3/uL (3.29-11.43)
[2024-11-25 06:11] LABS: Alanine Aminotransferase 11 U/L (0-33); Alkaline Phosphatase 92 U/L (35-105); Anion Gap 12.6 (5-19); Aspartate Amino Transferase 11 U/L (0-32); Blood Urea Nitrogen 18 mg/dL (6-20); Calcium 7.7 mg/dL (8.5-10.5); Carbon Dioxide 26 mmol/L (22-29); Chloride 103 mmol/L (98-107); Creatinine Clr Calc Pharmacy 135.1739; Globulin 2.7 g/dL (1.3-4.6); Glomerular Filtration Rate 89.7 mL/min (90-130); Glucose 91 mg/dL (65-115); Magnesium 2.1 mg/dL (1.7-2.3); Osmolality Calculated 287 mOsm/kg (285-295); Phosphorus 1.9 mg/dL (2.5-4.5); Potassium 3.6 mmol/L (3.5-5.1); Sodium 138 mmol/L (136-145); Total Bilirubin 0.4 mg/dL (0.15-1.2); Total Protein 5.7 g/dL (6.6-8.7)
[2024-11-25 08:00] VITALS: BP 125/78; PULSE 63; RESP 14; TEMP 37; O2SAT 95
--- NOTE | 2024-11-25 09:30 | P.PN_ITS ---
Subjective 2 Subjective: Patient seen and examined. She reports she is passing gas and having bowel movements. Denies any abdominal pain Vitals/I&O/Wt Last Vital Signs Temp 97.0 F L 11/26/24 08:43 Pulse 75 11/26/24 08:43 Resp 18 11/26/24 08:43 BP 100/59 11/26/24 08:43 Pulse Ox 98 11/26/24 08:43 O2 Del Method Room Air 11/26/24 08:43 O2 Flow Rate 6 11/26/24 08:40 11/25/24 11/26/24 11/26/24 22:59 06:59 14:59 Intake Total 2240 / 3240 992.5 / 4232.5 Balance 2240 / 3240 992.5 / 4232.5 Weight last 48 hrs Weight 194 lb 6.4 oz Weight 190 lb Weight 190 lb Weight 200 lb Physical Exam 2 Narrative: General: No acute distress, awake alert and oriented x 3 Abdomen: Soft, nontender, nondistended Data 11/26/24 05:17 11/26/24 05:17 Micro: Microbiology 11/24/24 17:04 Blood Culture - Preliminary Blood NEGATIVE TO DATE 11/24/24 17:02 Blood Culture - Preliminary Blood NEGATIVE TO DATE A&P Assessment and plan (1) Partial bowel obstruction: (2) Colonic mass: Plan Clear liquid diet Bowel prep N.p.o. after midnight Colonoscopy with biopsy tomorrow The risks and benefits of the procedure, including bleeding, infection, intestinal perforation requiring surgery, missed lesion were explained to the patient. The patient is understanding of the risks and wishes to proceed. PDMP PDMP Reviewed: Not Reviewed Attestations 2 Medical Necessity Statement*: Per primary Coding Level of Care Code Acute Code for Chg Fwd Diagnoses Partial bowel obstruction K56.600 Colonic mass K63.89
[2024-11-25 11:19] LABS: Bilirubin Urine Negative (Negative); Blood Urine Negative (Negative); Glucose Urine UA Negative (Normal); Ketones Urine 2+ (Negative); Leukocyte Esterase Urine 2+ (Negative); Nitrate Urine Negative (Negative); Protein Urine Trace (Negative); Urine Appearance Cloudy (CLEAR); Urine Color Dark Yellow (Yellow); pH Urine 5.5 (5-7)
[2024-11-25 11:22] VITALS: BP 97/58; PULSE 69; RESP 14; TEMP 37; O2SAT 97
[2024-11-25 11:23] LABS: Add Urine Microscopic? YES; Bacteria Urine 2+ /hpf; Hyaline Casts Urine 6.61 /lpf; WBC Urine 51-100 /hpf (0-5)
[2024-11-25 11:35] LABS: Specific Gravity, Urine 1.035 (1.005-1.030)
[2024-11-25 11:36] LABS: UA Slide Review UA Slide Review Perf
[2024-11-25] MEDS: enoxaparin 40 mg/0.4 mL Syringe SUBCUT (14:28)
[2024-11-25] MEDS: magnesium citrate Btl 296 mL PO ×2 (15:20→19:27)
[2024-11-25] MEDS: bisacodyl 5 mg Tablet 20 MG PO (15:20)
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
[2024-11-25 16:00] VITALS: BP 104/71; PULSE 92; RESP 16; TEMP 36.6; O2SAT 97
[2024-11-25] MEDS: cefTRIAXone 1,000 mg SDV 1000 MG IVP (16:31)
[2024-11-25 20:00] VITALS: BP 97/69; PULSE 73; RESP 17; TEMP 36.8; O2SAT 98
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
[2024-11-26] VITALS (10 sets, daily range): BP systolic 100–136; BP diastolic 59–83; PULSE 70–95; RESP 14–19; TEMP 36.1–37.7; O2SAT 93–100
[2024-11-26] MEDS: pantoprazole 40 mg SDV IVP ×2 (02:31→15:16)
[2024-11-26 05:55] LABS: Basophils % 0.5 %; Eosinophils # 0.2 10^3/uL (0.0-0.8); Eosinophils % 1.9 %; Hematocrit 40.1 % (36-47); Lymphocytes # 3.4 10^3/uL (0.8-4.8); Lymphocytes % 43.3 %; Mean Corpuscular HGB Conc 31.9 g/dL (30-55); Mean Corpuscular Hemoglobin 30.3 pg (27-33); Mean Platelet Volume 10.8 fL (7.4-10.4); Monocytes # 0.8 10^3/uL (0.2-0.9); Monocytes % 10.1 %; Neutrophils % 43.9 %; Nucleated Red Blood Cells % 0 %; Platelet Count 213 10^3/cmm (157-399); Red Blood Count 4.22 10^6/uL (3.85-5.65); Red Cell Distribution Width 12.7 % (12.1-15.1); White Blood Count 7.74 10^3/uL (3.29-11.43)
[2024-11-26 06:11] LABS: Alanine Aminotransferase 8 U/L (0-33); Albumin Level 3.1 g/dL (3.5-5.2); Alkaline Phosphatase 81 U/L (35-105); Aspartate Amino Transferase 8 U/L (0-32); Blood Urea Nitrogen 6 mg/dL (6-20); Calcium 7.4 mg/dL (8.5-10.5); Carbon Dioxide 27 mmol/L (22-29); Chloride 107 mmol/L (98-107); Creatinine Clr Calc Pharmacy 193.6242; Globulin 2.3 g/dL (1.3-4.6); Glomerular Filtration Rate 132.2 mL/min (90-130); Glucose 105 mg/dL (65-115); Magnesium 2.2 mg/dL (1.7-2.3); Osmolality Calculated 292 mOsm/kg (285-295); Phosphorus 2.1 mg/dL (2.5-4.5); Sodium 142 mmol/L (136-145); Total Bilirubin 0.2 mg/dL (0.15-1.2); Total Protein 5.4 g/dL (6.6-8.7)
[2024-11-26 06:32] LABS: Slide Review Slide Review Perform
[2024-11-26] MEDS: sodium chloride 0.9% 1,000 ML 150 ML IV ×2 (06:37)
--- NOTE | 2024-11-26 08:03 | P.PN_ITS ---
Vitals/I&O/Wt Last Vital Signs Temp 98.1 F 11/26/24 04:00 Pulse 70 11/26/24 04:00 Resp 18 11/26/24 04:00 BP 102/62 11/26/24 04:00 Pulse Ox 96 11/26/24 04:00 O2 Del Method Room Air 11/26/24 04:00 11/25/24 11/26/24 11/26/24 22:59 06:59 14:59 Intake Total 2240 / 3240 992.5 / 4232.5 Balance 2240 / 3240 992.5 / 4232.5 Weight last 48 hrs Weight 194 lb 6.4 oz Weight 190 lb Weight 190 lb Weight 200 lb Data 11/26/24 05:17 11/26/24 05:17 Micro: Microbiology 11/24/24 17:04 Blood Culture - Preliminary Blood NEGATIVE TO DATE 11/24/24 17:02 Blood Culture - Preliminary Blood NEGATIVE TO DATE A&P Assessment and plan (1) Partial bowel obstruction: (2) Colonic mass: Plan Colonoscopy The risks and benefits of the procedure, including bleeding, infection, intestinal perforation requiring surgery, missed lesion were explained to the patient. The patient is understanding of the risks and wishes to proceed. PDMP PDMP Reviewed: Not Reviewed Attestations 2 Medical Necessity Statement*: Patient will need to be in the hospital likely several more nights and require a left hemicolectomy for partial obstructing colon mass Coding Level of Care Code Acute Code for Chg Fwd Diagnoses Partial bowel obstruction K56.600 Colonic mass K63.89
--- NOTE | 2024-11-26 08:45 | ANE.PACU2 ---
Inpatient post-anesthesia follow up: Airway intact: Yes Vital signs: Temperature 98.7 F Pulse Rate 89 Respiratory Rate 16 Blood Pressure 117/65 Pulse Oximetry 99 Oxygen Delivery Me thod Room Air Oxygen Flow Rate 6 Fraction of Inspir ed Oxygen Hydration adequate: Yes Nausea and vomiting: No Pain level: 1 Mental status: Baseline
[2024-11-26] MEDS: potassium phosphate (mEq K) 40 MEQ in sodium chloride 0.9% (100 ml) 100 ML 27.25 MEQ IV (10:01)
[2024-11-26] MEDS: sodium chloride 0.9% 1,000 ML 100 ML IV ×2 (10:01→23:21)
[2024-11-26] MEDS: potassium chloride ER 20 mEq Tablet 40 MEQ PO (11:19)
[2024-11-26] MEDS: piperacillin-tazobactam 3.375 GM in sodium chloride 0.9% (plus) 50 ML IV (17:02)
--- NOTE | 2024-11-26 17:11 | P.PN_ITS ---
Subjective 2 Subjective: Patient was seen this morning, denies any fevers, no chills, no cough, she is status colonoscopy, she was found to have a partially obstructing mass in the proximal descending colon, malignant appearing, with plans on surgical intervention on Thursday, patient's children are at bedside she voiced understanding, all questions answered, she is anxious Vitals/I&O/Wt Last Vital Signs Temp 98.5 F 11/26/24 15:51 Pulse 87 11/26/24 15:51 Resp 16 11/26/24 15:51 BP 100/73 11/26/24 15:51 Pulse Ox 96 11/26/24 15:51 O2 Del Method Room Air 11/26/24 15:51 O2 Flow Rate 6 11/26/24 08:40 11/26/24 11/26/24 11/26/24 06:59 14:59 22:59 Intake Total 992.5 / 4232.5 754.0909 / 754.0909 Balance 992.5 / 4232.5 754.0909 / 754.0909 Weight last 48 hrs Weight 88.178 kg Weight 86.183 kg Physical Exam 2 Const: COMMON NORMALS: no acute distress and patient oriented x3 Resp: COMMON NORMALS: normal respiratory effort, No retractions, No use of accessory muscles and clear to auscultation bilaterally AUSCULTATION: clear to auscultation bilaterally Cardio: COMMON NORMALS: regular rate, regular rhythm, S1 normal heart sound present and S2 normal heart sound present RATE: regular rate RHYTHM: r egular rhythm HEART SOUNDS: S1 normal heart sound present and S2 normal heart sound present GI: OTHER: Abdomen soft, slightly distended, good bowel sounds Extremity: COMMON NORMALS: no pedal edema Neuro: COMMON NORMALS: patient oriented x3 Psych: COMMON NORMALS: mental status grossly normal Data 11/26/24 05:17 11/26/24 05:17 Micro: Microbiology 11/24/24 17:04 Blood Culture - Preliminary Blood NEGATIVE TO DATE 11/24/24 17:02 Blood Culture - Preliminary Blood NEGATIVE TO DATE A&P Assessment and plan (1) Small bowel obstruction: Plan CCESSION #: [id number] CT/CT abdomen pelvis w con* [id number] IMPRESSION: 1. High-grade colon and small bowel obstruction secondary to an obstructing lesion involving the proximal descending colon. Circumferential colon mass extends over a length of 4.7 cm. Colonoscopy is recommended. Highly suspicious for primary colon cancer. 2. Small lymph nodes adjacent to the descending colon mass. 3. Small amount of free fluid in the pelvis. 4. No free air. 5. Prior cholecystectomy. 6. There is a small amount of fluid in the RIGHT paracolic gutter associated with the appendix. The appendix does appear normal. -With erythrocytosis -Leukocytosis Plan -Clear liquids -IV fluids discontinued -Zofran, Reglan for nausea -Morphine for pain control -Erythrocytosis could be from colonic mass, smoking, -Leukocytosis, likely secondary to UTI, start Rocephin -Monitor abdomen closely -Full code -Lovenox for DVT prophylaxis -General Surgery has been consulted Colonoscopy found to have partially obstructing descending colonic mass, large sized malignant appearing stigmata of bleeding from the mass, plan on surgical intervention on Thursday PDMP PDMP Reviewed: Not Reviewed Attestations 2 Medical Necessity Statement*: Patient requires hospitalization for partially obstructing descending colon neck mass with plans on surgical intervention Diagnoses Small bowel obstruction K56.609
[2024-11-27] VITALS (20 sets, daily range): BP systolic 99–132; BP diastolic 65–91; PULSE 70–97; RESP 14–21; TEMP 36.4–36.8; O2SAT 93–100
[2024-11-27] MEDS: piperacillin-tazobactam 3.375 GM in sodium chloride 0.9% (plus) 50 ML IV ×3 (00:24→23:02)
[2024-11-27] MEDS: pantoprazole 40 mg SDV IVP ×2 (02:18→15:22)
[2024-11-27 07:03] LABS: Basophils % 0.4 %; Eosinophils # 0.2 10^3/uL (0.0-0.8); Eosinophils % 2.3 %; Hematocrit 36.8 % (36-47); Lymphocytes # 3.2 10^3/uL (0.8-4.8); Lymphocytes % 45.9 %; Mean Corpuscular HGB Conc 32.1 g/dL (30-55); Mean Corpuscular Hemoglobin 29.8 pg (27-33); Mean Corpuscular Volume 92.9 fl (85-98); Mean Platelet Volume 9.9 fL (7.4-10.4); Monocytes # 0.6 10^3/uL (0.2-0.9); Monocytes % 8.5 %; Neutrophils # 3.01 10^3/uL (1.8-7.7); Neutrophils % 42.8 %; Nucleated Red Blood Cells % 0 %; Platelet Count 229 10^3/cmm (157-399); Red Blood Count 3.96 10^6/uL (3.85-5.65); Red Cell Distribution Width 12.6 % (12.1-15.1); White Blood Count 7.04 10^3/uL (3.29-11.43)
[2024-11-27] MEDS: sodium chloride 0.9% 1,000 ML 30 ML IV (07:17)
[2024-11-27 07:23] LABS: Alanine Aminotransferase 8 U/L (0-33); Albumin Level 3.2 g/dL (3.5-5.2); Alkaline Phosphatase 83 U/L (35-105); Anion Gap 12.5 (5-19); Aspartate Amino Transferase 9 U/L (0-32); Blood Urea Nitrogen 3 mg/dL (6-20); Calcium 7.8 mg/dL (8.5-10.5); Carbon Dioxide 27 mmol/L (22-29); Chloride 105 mmol/L (98-107); Creatinine Clr Calc Pharmacy 193.6242; Globulin 2.6 g/dL (1.3-4.6); Glomerular Filtration Rate 132.2 mL/min (90-130); Glucose 92 mg/dL (65-115); Osmolality Calculated 288 mOsm/kg (285-295); Phosphorus 2.9 mg/dL (2.5-4.5); Potassium 3.5 mmol/L (3.5-5.1); Sodium 141 mmol/L (136-145); Total Bilirubin 0.2 mg/dL (0.15-1.2); Total Protein 5.8 g/dL (6.6-8.7)
--- NOTE | 2024-11-27 07:24 | P.PN_ITS ---
Vitals/I&O/Wt Last Vital Signs Temp 97.5 F L 11/27/24 07:10 Pulse 70 11/27/24 07:10 Resp 16 11/27/24 07:10 BP 109/65 11/27/24 07:10 Pulse Ox 98 11/27/24 07:10 O2 Del Method Room Air 11/27/24 07:10 O2 Flow Rate 6 11/26/24 08:40 11/26/24 11/27/24 11/27/24 22:59 06:59 14:59 Intake Total 1290 / 2284.0909 50 / 2334.0909 Balance 1290 / 2284.0909 50 / 2334.0909 Weight last 48 hrs Weight 194 lb 6.4 oz Data 11/27/24 06:55 11/27/24 06:55 A&P Assessment and plan (1) Partial bowel obstruction: (2) Colonic mass: Plan Left hemicolectomy with colostomy formation The risks and benefits of the procedure, including but not limited to, bleeding, scar, numbness, pain, damage to surrounding structures, stool leak, malfunction of the colostomy, need for surgery, were explained to the patient. She is understanding of the risks and wished to proceed PDMP PDMP Reviewed: Not Reviewed Attestations 2 Medical Necessity Statement*: Patient will require several nights in the hospital for recovery after left hemicolectomy and colostomy formation for obstructing colon mass Coding Level of Care Code Acute Code for Chg Fwd Diagnoses Partial bowel obstruction K56.600 Colonic mass K63.89
[2024-11-27] MEDS: tranexamic acid 1,000 mg/10mL SDV 1000 MG IV ×2 (09:32→10:35)
[2024-11-27] MEDS: thrombin 5,000 unit SDV 5000 UNIT XX (09:56)
--- NOTE | 2024-11-27 11:04 | PM.OP ---
Operative Report Date of procedure: November 27, 2024 Pre-op diagnosis: Obstructing colon mass in the proximal descending colon Post-op diagnosis: same Procedure done: Left hemicolectomy with colostomy formation Splenic flexure takedown Implants: Surgicel and thrombin Specimens removed/disposition: left hemicolectomy Surgeon: Efrain Lundberg DO Anesthesia: General and Nerve Block Estimated blood loss (mL): 580 Complications: None apparent Brief History: This is a possibly 9-year-old female who presented to the hospital with abdominal pain. She was found to have a mass in her proximal descending colon that was almost completely obstructing. Because of this I was unable to completely clean out her bowels in preparation for an anastomosis. Left hemicolectomy with colostomy formation was indicated. The risks and benefits were explained and documented. Procedure: Patient is well operative room placed on the OR table in supine position. General endotracheal ovation was achieved by the part of anesthesia. The abdomen was inspected prepped and draped in usual sterile fashion. A time was performed. All present were in agreement. A nasogastric tube was placed by the department anesthesia. I later confirmed that this was in the correct position. Abraham catheter was also placed. A 10 blade scalpel was then used to make a midline laparotomy incision from just caudad to the xiphoid process to below the umbilicus. Electrocautery was used to set down through the subcutaneous tissue and anterior rectus sheath. The rectus was then split and the posterior rectus sheath was grasped with hemostats x 2. Posterior rectus sheath was then opened with Metzenbaum scissors. I then was inside the abdomen and carried the incision caudad and cephalad for the length of the celiotomy. I was able to palpate the mass just at the splenic flexure with dense adhesions from the colon to the spleen. I identified transverse colon approximately 10 cm proximal to the mass and use electrocautery to transect the gastrocolic ligament and the mesentery. A IVON 100 mm blue load stapler was used to transect the transverse colon approximately 10 cm proximal to the mass and proximal to the splenic flexure. I then isolated the rectosigmoid junction. All was placed in the mesentery with electrocautery. A second load of the 100 mm blue IVON stapler was used to transect the rectosigmoid. An 0 Prolene suture was used to denise the rectal stump. The left white line of Toldt was then taken down electrocautery and bluntly. Next a takedown of the splenic flexure was performed. There were dense adhesions here as the mass was here. I very carefully transected the gastrocolic ligament and all attachments of the splenic flexure with electrocautery and LigaSure. There was some minor bleeding from the inferior pole of the spleen at this time. I packed the lap over it and continued with the hemicolectomy. Next I took down the mesentery all the way to the root with ligature. Left hemicolectomy specimen was passed off. Then I took the lap of the spleen and there was a small splenic tear that blood diffusely. I was able to control this bleeding with several pieces of Surgicel, 1 soaked in thrombin and TXA. Blood loss was 580 cc. Hemostasis was noted. I then took a Mundo to the skin at the previously marked site in the future colostomy and used electrocautery to tunnel out the skin and subcutaneous tissue down to the anterior rectus sheath. A cruciate incision was made on the anterior rectus sheath with electrocautery. The rectus muscle was then split using hemostats and a linear incision was made on the posterior rectus sheath. This was dilated to 2 fingers diameter. The transverse colon was then brought up through the colostomy site. There was not quite enough length so I used LigaSure to take down more of the gastrocolic ligament and mesentery, stopping just distal to the middle colic artery. This was just enough distance. The colon was then brought up through the colostomy site. The midline incision was then closed at the rectus fascia using looped PDS x 2 in a running fashion. Skin was closed with tammy. Colostomy was then matured in the typical fashion Endobag was placed. Patient tolerated procedure well.
--- NOTE | 2024-11-27 11:08 | ANES.PROC ---
Anesthesia Procedures Procedure/Date: 11/27/24 Nerve Block ^: Nerve Block 1: Main Anesthesia: general anesthesia Time Out Performed: Yes Consent: requested by attending/covering physician and other (consent obtained from family) Nerve block location: other (bilateral TAP block) Anesthesia monitors applied: pulse oximetry, EKG, BP cuff and oxygen Nerve block position: supine Anesthetic Used: other (Ropivicaine 0.2%) Amount of anesthesia used (mL): 60 Ultrasound used to: recognize landmarks Nerve Stimulator Used?: No Interscalene/Femoral BLK: other needle (pjunk 4inch needle) and visualize local anesthetic spread Injection: neg aspiration of heme Patient Tolerated Procedure: well Complications: none
[2024-11-27] MEDS: ondansetron 2 mg/ML SDV 2 mL 4 MG IVP ×2 (11:41→11:50)
--- NOTE | 2024-11-27 11:45 | P.PN_ITS ---
Subjective 2 Subjective: Patient was seen this morning, postoperatively, she is in a postop recovery, she is alert to person, to place, not to time she has NG tube in place, complains of abdominal pain, Vitals/I&O/Wt Last Vital Signs Temp 97.8 F 11/27/24 11:13 Pulse 91 11/27/24 11:38 Resp 16 11/27/24 11:38 BP 116/80 11/27/24 11:38 Pulse Ox 95 11/27/24 11:38 O2 Del Method Room Air 11/27/24 11:38 O2 Flow Rate 6 11/27/24 11:23 11/26/24 11/27/24 11/27/24 22:59 06:59 14:59 Intake Total 1290 / 2284.0909 50 / 2334.0909 1200 / 1200 Output Total 980 / 980 Balance 1290 / 2284.0909 50 / 2334.0909 220 / 220 Weight last 48 hrs Weight 88.178 kg Physical Exam 2 Const: COMMON NORMALS: no acute distress and patient oriented x3 Resp: COMMON NORMALS: normal respiratory effort, No retractions, No use of accessory muscles and clear to auscultation bilaterally AUSCULTATION: clear to auscultation bilaterally Cardio: COMMON NORMALS: regular rate, regular rhythm, S1 normal heart sound present and S2 normal heart sound present RATE: regular rate RHYTHM: r egular rhythm HEART SOUNDS: S1 normal heart sound present and S2 normal heart sound present GI: COMMON NORMALS: Normal to inspection, nondistended, normoactive bowel sounds present and non-tender Extremity: COMMON NORMALS: no pedal edema Neuro: COMMON NORMALS: patient oriented x3 Psych: COMMON NORMALS: mental status grossly normal Urinary Catheter Management: Abraham Latex: Cath Placed During This Visit: yes Urinary Catheter Date of Insertion: 11/27/24 Urinary Catheter Time of Insertion: 08:05 Data 11/27/24 06:55 11/27/24 06:55 A&P Assessment and plan (1) Small bowel obstruction: Plan small bowel obstruction CT/CT abdomen pelvis w con* [id number] IMPRESSION: 1. High-grade colon and small bowel obstruction secondary to an obstructing lesion involving the proximal descending colon. Circumferential colon mass extends over a length of 4.7 cm. Colonoscopy is recommended. Highly suspicious for primary colon cancer. 2. Small lymph nodes adjacent to the descending colon mass. 3. Small amount of free fluid in the pelvis. 4. No free air. 5. Prior cholecystectomy. 6. There is a small amount of fluid in the RIGHT paracolic gutter associated with the appendix. The appendix does appear normal. -With erythrocytosis -Leukocytosis s/p Procedure done, POD dr. mora -Left hemicolectomy with colostomy formation -Splenic flexure takedown -Estimated blood loss (mL): 580 Plan -npo -IV fluids -Zofran, Reglan for nausea -Morphine for pain control -Erythrocytosis could be from colonic mass, smoking, -Leukocytosis, likely secondary to UTI, Rocephin -Monitor abdomen closely -Due to ESBL 580, bleeding at inferior pole of the spleen, small splenic, check hemoglobin, hold Lovenox, serial abdominal exams -Full code -Lovenox for DVT prophylaxis on hold due to intraoperative -General Surgery has been consulted PDMP PDMP Reviewed: Not Reviewed Attestations 2 Medical Necessity Statement*: Patient requires hospitalization for obstruction with colonic mass status post surgical intervention Diagnoses Small bowel obstruction K56.609
--- NOTE | 2024-11-27 11:52 | PC.NURSE ---
zofran given x2 for nausea.
--- NOTE | 2024-11-27 12:10 | ANE.PACU2 ---
Inpatient post-anesthesia follow up: Airway intact: Yes Vital signs: Temperature 98.7 F Pulse Rate 89 Respiratory Rate 16 Blood Pressure 117/65 Pulse Oximetry 99 Oxygen Delivery Me thod Room Air Oxygen Flow Rate 6 Fraction of Inspir ed Oxygen Hydration adequate: Yes Nausea and vomiting: No Pain level: 2 Mental status: Baseline
--- NOTE | 2024-11-27 12:17 | PC.NURSE ---
1210 took pt to floor. Report to [facility]. VS 114/76 sat 95 pulse 87 temp 97.5
[2024-11-27 15:00] LABS: Basophils % 0.1 %; Hematocrit 38.3 % (36-47); Lymphocytes # 0.7 10^3/uL (0.8-4.8); Lymphocytes % 4.3 %; Mean Corpuscular HGB Conc 31.6 g/dL (30-55); Mean Corpuscular Hemoglobin 29.5 pg (27-33); Mean Corpuscular Volume 93.4 fl (85-98); Mean Platelet Volume 10.2 fL (7.4-10.4); Monocytes # 0.8 10^3/uL (0.2-0.9); Neutrophils # 13.65 10^3/uL (1.8-7.7); Neutrophils % 90.3 %; Nucleated Red Blood Cells % 0 %; Platelet Count 260 10^3/cmm (157-399); Red Cell Distribution Width 12.9 % (12.1-15.1); White Blood Count 15.11 10^3/uL (3.29-11.43)
[2024-11-27] MEDS: HYDROMORPHONE HCL 0.5 MG/0.5 ML INJ 1 MG IVP ×2 (15:22→23:00)
[2024-11-27] MEDS: sodium chloride 0.9% 1,000 ML 100 ML IV ×2 (15:23→22:55)
[2024-11-27 22:08] LABS: Hematocrit 34.5 % (36-47)
[2024-11-28] VITALS (7 sets, daily range): BP systolic 116–137; BP diastolic 64–86; PULSE 76–100; RESP 15–18; TEMP 36.7–37.2; O2SAT 90–99
[2024-11-28 02:29] LABS: Basophils % 0.1 %; Eosinophils % 0.1 %; Hematocrit 34.7 % (36-47); Lymphocytes # 2.2 10^3/uL (0.8-4.8); Mean Corpuscular HGB Conc 32.3 g/dL (30-55); Mean Corpuscular Hemoglobin 29.8 pg (27-33); Mean Corpuscular Volume 92.3 fl (85-98); Mean Platelet Volume 10.5 fL (7.4-10.4); Monocytes # 1.2 10^3/uL (0.2-0.9); Monocytes % 9.2 %; Neutrophils # 9.95 10^3/uL (1.8-7.7); Neutrophils % 74.2 %; Nucleated Red Blood Cells % 0 %; Platelet Count 249 10^3/cmm (157-399); Red Blood Count 3.76 10^6/uL (3.85-5.65); White Blood Count 13.42 10^3/uL (3.29-11.43)
--- NOTE | 2024-11-28 02:30 | PC.NURSE ---
Pt has had 800ml out of her NG at this time. Education provided to pt and SO regarding NPO status. Mouth swabs provided. Pt and SO voiced understanding.
[2024-11-28 03:02] LABS: Alanine Aminotransferase 36 U/L (0-33); Albumin Level 2.9 g/dL (3.5-5.2); Alkaline Phosphatase 109 U/L (35-105); Anion Gap 14.3 (5-19); Aspartate Amino Transferase 37 U/L (0-32); Blood Urea Nitrogen 7 mg/dL (6-20); Calcium 7.9 mg/dL (8.5-10.5); Carbon Dioxide 24 mmol/L (22-29); Chloride 106 mmol/L (98-107); Globulin 2.6 g/dL (1.3-4.6); Glomerular Filtration Rate 89.7 mL/min (90-130); Glucose 130 mg/dL (65-115); Osmolality Calculated 290 mOsm/kg (285-295); Phosphorus 3.6 mg/dL (2.5-4.5); Potassium 4.3 mmol/L (3.5-5.1); Sodium 140 mmol/L (136-145); Total Bilirubin 0.3 mg/dL (0.15-1.2); Total Protein 5.5 g/dL (6.6-8.7)
[2024-11-28 03:03] LABS: Lactate (Lactic Acid level) 1.2 mmol/L (0.5-2.2)
[2024-11-28] MEDS: pantoprazole 40 mg SDV IVP ×2 (03:30→13:32)
[2024-11-28] MEDS: piperacillin-tazobactam 3.375 GM in sodium chloride 0.9% (plus) 50 ML IV ×3 (08:47→23:50)
[2024-11-28] MEDS: sodium chloride 0.9% 1,000 ML 100 ML IV ×2 (08:48→21:20)
[2024-11-28] MEDS: nystatin powder 15 gm Btl 1 APPLIC TOPICAL (08:48)
[2024-11-28 13:00] LABS: Hematocrit 32.3 % (36-47)
--- NOTE | 2024-11-28 20:25 | P.PN_ITS ---
Subjective 2 Subjective: 49-year-old female with a past medical h istory of smoking and coronary artery disease, status post myocardial infarction in her twenties, presents with nausea, vomiting, and no bowel movement. The patient was found to have a colonic mass on CT scan in August but did not follow up. She denies any blood in her stool at that time. The patient underwent a CT scan which revealed a high-grade colonic and small bowel obstruction due to a circumferential mass extending over a length of 4.7 cm in the descending colon. Small lymph nodes were noted adjacent to the mass. The patient's surgical history is significant for a prior cholecystectomy. An NG tube was placed. Colonoscopy on 11/26/2024 revealed a partially obstructing, large, malignant-appearing circumferential mass in the proximal descending colon with stigmata of bleeding. A small, more distal lesion may have been missed due to poor prep. The patient underwent a left hemicolectomy with colostomy formation and takedown of the splenic flexure on 11/27/2024. Intraoperatively, the mass was noted to be almost completely obstructing. A small splenic tear occurred with diffuse bleeding, managed with thrombin and tranexamic acid. Estimated blood loss was 580 mL. Postoperatively, the patient remains on normal saline via NG tube with outputs of 200 mL plus an additional 900 mL overnight. No bowel movement has been noted. The patient reports significant abdominal pain and soreness. Vitals/I&O/Wt Last Vital Signs Temp 98.4 F 11/28/24 19:51 Pulse 76 11/28/24 19:51 Resp 18 11/28/24 19:51 BP 116/81 11/28/24 19:51 Pulse Ox 96 11/28/24 19:51 O2 Del Method Room Air 11/28/24 15:30 O2 Flow Rate 6 11/27/24 11:23 11/28/24 11/28/24 11/28/24 06:59 14:59 22:59 Intake Total 50 / 3053.333 1038.333 / 4318.446 5100 / 8.333 Output Total 900 / 2380 1600 / 1600 Balance -850 / 318.679 0973.333 / 1038.333 -600 / 438.333 Weight last 48 hrs Weight 87.135 kg Physical Exam 2 Const: COMMON NORMALS: no acute distress and patient oriented x3 Resp: COMMON NORMALS: normal respiratory effort, No retractions, No use of accessory muscles and clear to auscultation bilaterally AUSCULTATION: clear to auscultation bilaterally Cardio: COMMON NORMALS: regular rate, regular rhythm, S1 normal heart sound present and S2 normal heart sound present RATE: regular rate RHYTHM: r egular rhythm HEART SOUNDS: S1 normal heart sound present and S2 normal heart sound present GI: COMMON NORMALS: Normal to inspection, nondistended, normoactive bowel sounds present and non-tender Extremity: COMMON NORMALS: no pedal edema Neuro: COMMON NORMALS: patient oriented x3 Psych: COMMON NORMALS: mental status grossly normal Urinary Catheter Management: Abraham Latex: Cath Placed During This Visit: yes Reason for Continuing Indwelling Catheter: Perioperative Use in Selected Surgeries Urinary Catheter Date of Insertion: 11/27/24 Urinary Catheter Time of Insertion: 08:05 Data 11/28/24 12:26 11/28/24 02:19 A&P Assessment and plan (1) Small bowel obstruction: Plan Descending Colon Cancer with High-Grade Obstruction - Status post left hemicolectomy with colostomy and splenic flexure takedown on 11/27/2024. Intraoperative findings of near-complete obstruction and small splenic tear with 580 mL blood loss. Differential Diagnosis: 1. Primary adenocarcinoma of the descending colon 2. Metastatic disease from another primary site Plan: 1. Monitor vital signs, urine output, and colostomy function. 2. Continue NG tube decompression, monitor output and electrolytes. 3. Pain control 4. Incentive spirometry 5. Surgical pathology to confirm diagnosis and guide further management. Acute Blood Loss Anemia - Intraoperative blood loss of 580 mL, likely contributing to postoperative anemia and fatigue. Plan: 1. Monitor hemoglobin and hematocrit levels daily. 2. Transfuse packed red blood cells if hemoglobin falls below 7 g/dL or if symptomatic. PDMP PDMP Reviewed: Not Reviewed Attestations 2 Medical Necessity Statement*: Patient requires hospitalization for obstruction with colonic mass status post surgical intervention Coding Level of Care Code Acute Code for [facility] Diagnoses Small bowel obstruction K56.609
[2024-11-29] VITALS (9 sets, daily range): BP systolic 96–126; BP diastolic 60–81; PULSE 77–106; RESP 15–17; TEMP 36.4–37.2; O2SAT 94–98
[2024-11-29] MEDS: pantoprazole 40 mg SDV IVP ×2 (03:15→15:19)
[2024-11-29 06:45] LABS: Basophils # 0.1 10^3/uL (0.0-0.1); Basophils % 0.5 %; Eosinophils # 0.3 10^3/uL (0.0-0.8); Eosinophils % 2.1 %; Hematocrit 33.3 % (36-47); Lymphocytes # 3.2 10^3/uL (0.8-4.8); Lymphocytes % 22.3 %; Mean Corpuscular HGB Conc 31.8 g/dL (30-55); Mean Corpuscular Hemoglobin 29.7 pg (27-33); Mean Corpuscular Volume 93.3 fl (85-98); Mean Platelet Volume 10.8 fL (7.4-10.4); Monocytes # 1.4 10^3/uL (0.2-0.9); Neutrophils # 9.21 10^3/uL (1.8-7.7); Neutrophils % 64.7 %; Nucleated Red Blood Cells % 0 %; Platelet Count 245 10^3/cmm (157-399); Red Blood Count 3.57 10^6/uL (3.85-5.65); Red Cell Distribution Width 12.7 % (12.1-15.1); White Blood Count 14.23 10^3/uL (3.29-11.43)
[2024-11-29 06:51] LABS: Lactate (Lactic Acid level) 0.8 mmol/L (0.5-2.2)
[2024-11-29 06:52] LABS: Alanine Aminotransferase 21 U/L (0-33); Albumin Level 2.8 g/dL (3.5-5.2); Alkaline Phosphatase 97 U/L (35-105); Anion Gap 15.9 (5-19); Aspartate Amino Transferase 16 U/L (0-32); Blood Urea Nitrogen 5 mg/dL (6-20); Calcium 7.8 mg/dL (8.5-10.5); Carbon Dioxide 24 mmol/L (22-29); Chloride 101 mmol/L (98-107); Creatinine Clr Calc Pharmacy 191.5338; Globulin 3.1 g/dL (1.3-4.6); Glomerular Filtration Rate 132.2 mL/min (90-130); Glucose 96 mg/dL (65-115); Magnesium 1.8 mg/dL (1.7-2.3); Osmolality Calculated 281 mOsm/kg (285-295); Phosphorus 2.1 mg/dL (2.5-4.5); Potassium 3.9 mmol/L (3.5-5.1); Sodium 137 mmol/L (136-145); Total Bilirubin 0.3 mg/dL (0.15-1.2); Total Protein 5.9 g/dL (6.6-8.7)
[2024-11-29] MEDS: piperacillin-tazobactam 3.375 GM in sodium chloride 0.9% (plus) 50 ML IV ×2 (08:20→15:19)
[2024-11-29] MEDS: sodium chloride 0.9% 1,000 ML 100 ML IV ×2 (10:32→20:08)
--- NOTE | 2024-11-29 15:17 | P.PN_ITS ---
Subjective 2 Subjective: 49-year-old female with a past medical h istory of smoking and coronary artery disease, status post myocardial infarction in her twenties, presents with nausea, vomiting, and no bowel movement. The patient was found to have a colonic mass on CT scan in August but did not follow up. She denies any blood in her stool at that time. The patient underwent a CT scan which revealed a high-grade colonic and small bowel obstruction due to a circumferential mass extending over a length of 4.7 cm in the descending colon. Small lymph nodes were noted adjacent to the mass. The patient's surgical history is significant for a prior cholecystectomy. An NG tube was placed. Colonoscopy on 11/26/2024 revealed a partially obstructing, large, malignant-appearing circumferential mass in the proximal descending colon with stigmata of bleeding. A small, more distal lesion may have been missed due to poor prep. The patient underwent a left hemicolectomy with colostomy formation and takedown of the splenic flexure on 11/27/2024. Intraoperatively, the mass was noted to be almost completely obstructing. A small splenic tear occurred with diffuse bleeding, managed with thrombin and tranexamic acid. Estimated blood loss was 580 mL. Postoperatively on 11/28- the patient remains on normal saline via NG tube with outputs of 200 mL plus an additional 900 mL overnight. No bowel movement has been noted. The patient reports significant abdominal pain and soreness. 11/29 No new clinical events overnight No fever, or chills Noted stable abdominal sorness postop No return of bowel function Vitals/I&O/Wt Last Vital Signs Temp 98.0 F 11/29/24 11:23 Pulse 89 11/29/24 11:23 Resp 15 11/29/24 11:23 BP 126/77 11/29/24 11:23 Pulse Ox 98 11/29/24 11:23 O2 Del Method Room Air 11/29/24 11:23 O2 Flow Rate 6 11/27/24 11:23 11/29/24 11/29/24 11/29/24 06:59 14:59 22:59 Intake Total 50 / 2138.333 1050 / 1050 Output Total 1400 / 3450 1350 / 1350 Balance -1350 / -1311.667 -300 / -300 Weight last 48 hrs Weight 87.226 kg Weight 87.135 kg Physical Exam 2 Const: COMMON NORMALS: no acute distress (NG in place ) and patient oriented x3 Resp: COMMON NORMALS: normal respiratory effort, No retractions, No use of accessory muscles and clear to auscultation bilaterally AUSCULTATION: clear to auscultation bilaterally Cardio: COMMON NORMALS: regular rate, regular rhythm, S1 normal heart sound present and S2 normal heart sound present RATE: regular rate RHYTHM: r egular rhythm HEART SOUNDS: S1 normal heart sound present and S2 normal heart sound present GI: OTHER: Post op- Colostomy in place - no BM Extremity: COMMON NORMALS: no pedal edema Neuro: COMMON NORMALS: patient oriented x3 Psych: COMMON NORMALS: mental status grossly normal Urinary Catheter Management: Abraham Latex: Cath Placed During This Visit: yes Reason for Continuing Indwelling Catheter: Acute Urinary Retention or Obstruction Urinary Catheter Date of Insertion: 11/27/24 Urinary Catheter Time of Insertion: 08:05 Data 11/29/24 06:12 11/29/24 06:12 A&P Assessment and plan (1) Small bowel obstruction: Plan Descending Colon Cancer with High-Grade Obstruction - Status post left hemicolectomy with colostomy and splenic flexure takedown on 11/27/2024. Intraoperative findings of near-complete obstruction and small splenic tear with 580 mL blood loss. - Awaiting return of Bowel function - NG in place - Pathology- pending Plan: 1.Continue colostomy care 2. Continue NG tube decompression, monitor output and electrolytes. 3. Empirically on Zosyn as per General Surgery 4. Follow up on Surgical pathology to confirm diagnosis and guide further management. 5. Repeat CBC/BMP in am 6. Remain NPO 7. Continue IVF Acute Blood Loss Anemia - Intra-operative blood loss of 580 mL, likely contributing to postoperative anemia and fatigue. Plan: 1. Monitor daily CBC 2. Transfuse packed red blood cells if hemoglobin falls below 7 g/dL or if symptomatic. 3. Currently Stable PDMP PDMP Reviewed: Not Reviewed Attestations 2 Medical Necessity Statement*: Patient requires hospitalization for obstruction with colonic mass status post surgical intervention Coding Level of Care Code Acute Code for [facility] Diagnoses Small bowel obstruction K56.609
[2024-11-30] VITALS (9 sets, daily range): BP systolic 104–133; BP diastolic 64–82; PULSE 87–106; RESP 15–17; TEMP 36.7–37.4; O2SAT 95–99
[2024-11-30] MEDS: pantoprazole 40 mg SDV IVP ×2 (02:32→16:11)
[2024-11-30 03:06] LABS: Basophils % 0.3 %; Eosinophils # 0.4 10^3/uL (0.0-0.8); Eosinophils % 2.9 %; Hematocrit 32.8 % (36-47); Lymphocytes # 2.9 10^3/uL (0.8-4.8); Lymphocytes % 22.2 %; Mean Corpuscular HGB Conc 32.3 g/dL (30-55); Mean Corpuscular Hemoglobin 30.1 pg (27-33); Mean Corpuscular Volume 93.2 fl (85-98); Mean Platelet Volume 10.6 fL (7.4-10.4); Monocytes # 1.3 10^3/uL (0.2-0.9); Monocytes % 9.7 %; Neutrophils # 8.48 10^3/uL (1.8-7.7); Neutrophils % 64.5 %; Nucleated Red Blood Cells % 0 %; Platelet Count 240 10^3/cmm (157-399); Red Blood Count 3.52 10^6/uL (3.85-5.65); Red Cell Distribution Width 12.7 % (12.1-15.1); White Blood Count 13.13 10^3/uL (3.29-11.43)
[2024-11-30 03:30] LABS: Alanine Aminotransferase 14 U/L (0-33); Albumin Level 2.6 g/dL (3.5-5.2); Alkaline Phosphatase 75 U/L (35-105); Anion Gap 16.2 (5-19); Aspartate Amino Transferase 10 U/L (0-32); Blood Urea Nitrogen 6 mg/dL (6-20); Calcium 7.9 mg/dL (8.5-10.5); Carbon Dioxide 22 mmol/L (22-29); Chloride 103 mmol/L (98-107); Creatinine Clr Calc Pharmacy 239.4172; Globulin 2.8 g/dL (1.3-4.6); Glomerular Filtration Rate 171.1 mL/min (90-130); Glucose 106 mg/dL (65-115); Magnesium 1.8 mg/dL (1.7-2.3); Osmolality Calculated 284 mOsm/kg (285-295); Phosphorus 2.6 mg/dL (2.5-4.5); Potassium 3.2 mmol/L (3.5-5.1); Sodium 138 mmol/L (136-145); Total Bilirubin 0.2 mg/dL (0.15-1.2); Total Protein 5.4 g/dL (6.6-8.7)
[2024-11-30 03:31] LABS: Lactate (Lactic Acid level) 0.8 mmol/L (0.5-2.2)
[2024-11-30] MEDS: sodium chloride 0.9% 1,000 ML 100 ML IV ×2 (06:09→16:13)
[2024-11-30] MEDS: piperacillin-tazobactam 3.375 GM in sodium chloride 0.9% (plus) 50 ML IV ×3 (09:27→18:33)
[2024-11-30] MEDS: nystatin powder 15 gm Btl 1 APPLIC TOPICAL (09:28)
[2024-11-30] MEDS: lidocaine 1% 5 ML in potassium chloride premix 100 ML 52.5 ML IV (10:53)
--- NOTE | 2024-11-30 16:06 | P.PN_ITS ---
Subjective 2 Subjective: 49-year-old female with a past medical h istory of smoking and coronary artery disease, status post myocardial infarction in her twenties, presents with nausea, vomiting, and no bowel movement. The patient was found to have a colonic mass on CT scan in August but did not follow up. She denies any blood in her stool at that time. The patient underwent a CT scan which revealed a high-grade colonic and small bowel obstruction due to a circumferential mass extending over a length of 4.7 cm in the descending colon. Small lymph nodes were noted adjacent to the mass. The patient's surgical history is significant for a prior cholecystectomy. An NG tube was placed. Colonoscopy on 11/26/2024 revealed a partially obstructing, large, malignant-appearing circumferential mass in the proximal descending colon with stigmata of bleeding. A small, more distal lesion may have been missed due to poor prep. The patient underwent a left hemicolectomy with colostomy formation and takedown of the splenic flexure on 11/27/2024. Intraoperatively, the mass was noted to be almost completely obstructing. A small splenic tear occurred with diffuse bleeding, managed with thrombin and tranexamic acid. Estimated blood loss was 580 mL. Postoperatively on 11/28-> the patient remains on normal saline via NG tube with outputs of 200 mL plus an additional 900 mL overnight. No bowel movement has been noted. The patient reports significant abdominal pain and soreness. 11/29 No new clinical events overnight No fever, or chills Noted stable abdominal sorness postop No return of bowel function 11/30 - Patient today was noted to have gas/ou tput from colostomy. Was not feeling nauseus, no emesis. no fever, chill, nausea or vomiting. Was able to ambulate. Vitals/I&O/Wt Last Vital Signs Temp 98.6 F 11/30/24 15:24 Pulse 95 11/30/24 15:24 Resp 15 11/30/24 15:24 BP 116/64 11/30/24 15:24 Pulse Ox 95 11/30/24 15:24 O2 Del Method Room Air 11/30/24 15:24 O2 Flow Rate 6 11/27/24 11:23 11/30/24 11/30/24 11/30/24 06:59 14:59 22:59 Intake Total 1050 / 3110 123.125 / 123.125 Output Total 900 / 3350 Balance 150 / -240 123.125 / 123.125 Weight last 48 hrs Weight 87.362 kg Weight 87.226 kg Physical Exam 2 Const: COMMON NORMALS: patient oriented x3 Resp: COMMON NORMALS: normal respiratory effort, No retractions, No use of accessory muscles and clear to auscultation bilaterally AUSCULTATION: clear to auscultation bilaterally Cardio: COMMON NORMALS: regular rate, regular rhythm, S1 normal heart sound present and S2 normal heart sound present RATE: regular rate RHYTHM: r egular rhythm HEART SOUNDS: S1 normal heart sound present and S2 normal heart sound present GI: OTHER: Post op- Colostomy in place - no BM Extremity: COMMON NORMALS: no pedal edema Neuro: COMMON NORMALS: patient oriented x3 Psych: COMMON NORMALS: mental status grossly normal Urinary Catheter Management: Abraham Latex: Cath Placed During This Visit: yes Reason for Continuing Indwelling Catheter: Required Immobilization for Trauma or Surgery or Anesthesia Urinary Catheter Date of Insertion: 11/27/24 Urinary Catheter Time of Insertion: 08:05 Data 11/30/24 02:55 11/30/24 02:55 Micro: Microbiology 11/24/24 17:04 Blood Culture - Final Blood NO GROWTH AFTER 5 DAYS 11/24/24 17:02 Blood Culture - Final Blood NO GROWTH AFTER 5 DAYS A&P Assessment and plan (1) Small bowel obstruction: Plan Descending Colon Cancer with High-Grade Obstruction - Status post left hemicolectomy with colostomy and splenic flexure takedown on 11/27/2024. Intraoperative findings of near-complete obstruction and small splenic tear with 580 mL blood loss. - Pathology- pending Plan: 1.Continue colostomy care 2. NG was clamped, D/C if no nausea, vomiting or increase in abdominal pain 3. Empirically on Zosyn as per General Surgery 4. Follow up on Surgical pathology to confirm diagnosis and guide further management.- pending 5. Repeat CBC/BMP in am 6. Advance diet per Surgery 7. Continue IVF Anemia - Intra-operative blood loss of 580 mL, likely contributing to postoperative anemia and fatigue. - Hemoglobin stable Plan: 1. Monitor daily CBC 2. Transfuse packed red blood cells if hemoglobin falls below 7 g/dL or if symptomatic. 3. Currently Stable Hypokalemia - K 3.2 today Plan: 1. KCL 40 MeQ iv x 1 ordered 2. Repeat BMP in am PDMP PDMP Reviewed: Not Reviewed Attestations 2 Medical Necessity Statement*: Patient requires hospitalization for obstruction with colonic mass status post surgical intervention Coding Level of Care Code Acute Code for [facility] Diagnoses Small bowel obstruction K56.609
[2024-12-01] VITALS (8 sets, daily range): BP systolic 108–121; BP diastolic 75–83; PULSE 79–104; RESP 14–18; TEMP 36.5–36.9; O2SAT 95–96
[2024-12-01] MEDS: piperacillin-tazobactam 3.375 GM in sodium chloride 0.9% (plus) 50 ML IV ×2 (02:01→11:12)
[2024-12-01] MEDS: sodium chloride 0.9% 1,000 ML 100 ML IV ×2 (02:01→12:54)
[2024-12-01] MEDS: pantoprazole 40 mg SDV IVP (02:02)
[2024-12-01] MEDS: nystatin powder 15 gm Btl 1 APPLIC TOPICAL (09:09)
--- NOTE | 2024-12-01 09:19 | PC.NURSE ---
This nurse removed the pt NG tube at bedside during shift assessment. Stool present in colostomy. Pt reports feeling well. Denies any nausea, vomiting, or pain.
[2024-12-01 12:02] LABS: Blood Urea Nitrogen 4 mg/dL (6-20); Calcium 7.7 mg/dL (8.5-10.5); Carbon Dioxide 19 mmol/L (22-29); Chloride 101 mmol/L (98-107); Creatinine Clr Calc Pharmacy 239.7905; Glomerular Filtration Rate 171.1 mL/min (90-130); Glucose 108 mg/dL (65-115); Osmolality Calculated 277 mOsm/kg (285-295); Sodium 135 mmol/L (136-145)
[2024-12-01 12:09] LABS: Anion Gap 18.6 (5-19); Potassium 3.6 mmol/L (3.5-5.1)
--- NOTE | 2024-12-01 15:06 | PC.NURSE ---
Addendum entered by Miguel Orona LPN 12/01/24 15:13: This occurred at 1315 approximately Original Note: The pt called staff to her room at this time requesting assistance with removing her S.O. from her room. This nurse notified security before approaching the room. I stood outside the room and listened before entering. The pt asked several times for the S.O. to leave. As I was about to enter he exited the room. This nurse spoke with pt and she stated I do not want him back ever! I don't care what I say, do not him back! . I consulted security and explained the situation. They went to bedside with this nurse and asked the pt her wishes. The pt expressed the same request to security. We both explained to her that we will respect her wishes, but she has to understand that if she asks for him to be allowed, will not allow him back. She states she understands and needs to get better and him being she cannot do that.
--- NOTE | 2024-12-01 16:10 | P.DS_ITS ---
Discharge Providers Date of Admission: 11/24/24 13:14 Date of Discharge: December 01, 2024 Attending Provider at Admission: Frankie Tompkisn MD Attending Provider at Discharge: Mari Chacon Diagnoses at Discharge Discharge Diagnosis (1) Small bowel obstruction: Status: Acute (2) Colon cancer: Status: Acute (3) Large bowel obstruction: Status: Acute Reason for Visit Reason for Visit: n/v, abd pain Hospital Course Hospital Course This very pleasant 49-year-old female who presented to the hospital with abdominal pain. She was found to have a nearly complete colon obstruction from a mass just distal to her splenic flexure. This mass was known to be present since August but she did not follow-up on it. She underwent colonoscopy and the mass could not be passed. She then underwent open left hemicolectomy with colostomy formation. She did well postoperatively. She is tolerating a diet and passing stool into her colostomy bag upon discharge. She is discharged home in good condition with follow-up Physical Exam Narrative: General : Patient is well developed , no acute distress, oriented x3 Head : Normal cephalic, a-traumatic. Ears : Pinnae and external canal are normal. Hearing is normal. Eyes : PERRLA, Sclera and injection are normal. No conjunctival discharge. Nose : Mucous membranes are without erythema. Throat : buccal mucosa is normal, gums are without significant recession or hypertrophy. Lungs : Equal chest rise bilaterally, no use of accessory muscles, trachea is midline. Cor : Rate and rhythm are normal. Abdomen : Soft, ND, appropriately tender no g/r/m Incision intact without erythema or exudate Ostomy pink patent and producing Extremities : No edema, no cyanosis or clubbing, dorsalis pedis pulses are present bilaterally, non-tender to palpation of calves. Upper extremities are normal bilaterally. Back : non-tender to palpation, no CVA tenderness. Neuro : CN II - XII intact, Upper and lower extremities have equal and full strength Urinary Catheter Management: Abraham Latex: Cath Placed During This Visit: yes, but has since been removed by the nurse Reason for Continuing Indwelling Catheter: Other Urinary Catheter Date of Insertion: 11/27/24 Urinary Catheter Time of Insertion: 08:05 Date Urinary Catheter Removed: 12/01/24 Time Urinary Catheter Discontinued: 12:30 Discharge Data Studies Completed and Pending Completed Studies During Hospitalization Category Date Time Status CT abdomen pelvis w con* [id number] Stat Cat Scan 11/24/24 10:06 Completed XR chest 1V portable [id number] Stat Exams 11/24/24 12:13 Completed Pathology: Surgical [PTH] Routine Pth 11/26/24 08:24 Completed Pending at discharge Category Date Time Status Pathology: Surgical [PTH] Routine Pth 11/27/24 10:56 Received Radiology Impressions Abdomen/Pelvis CT 11/24/24 10:06 IMPRESSION: 1. High-grade colon and small bowel obstruction secondary to an obstructing l esion involving the proximal descending colon. Circumferential colon mass extends over a length of 4.7 cm. Colonoscopy is recommended. Highly suspicious for primary colon cancer. 2. Small lymph nodes adjacent to the descending colon mass. 3. Small amount of free fluid in the pelvis. 4. No free air. 5. Prior cholecystectomy. 6. There is a small amount of fluid in the RIGHT paracolic gutter associated with the appendix. The appendix does appear normal. Chest X-Ray 11/24/24 12:13 Impression: Nasogastric tube ends in fundus of the stomach. Laboratory Results WBC 13.13 10^3/uL (3.29-11.43) H 11/30/24 02:55 RBC 3.52 10^6/uL (3.85-5.65) L 11/30/24 02:55 Hgb 10.60 g/dL (11.27-16.99) L 11/30/24 02:55 Hct 32.8 % (36-47) L 11/30/24 02:55 MCV 93.2 fl (85-98) 11/30/24 02:55 MCH 30.1 pg (27-33) 11/30/24 02:55 MCHC 32.3 g/dL (30-55) 11/30/24 02:55 RDW 12.7 % (12.1-15.1) 11/30/24 02:55 Plt Count 240 10^3/cmm (157-399) 11/30/24 02:55 MPV 10.6 fL (7.4-10.4) H 11/30/24 02:55 Neut % (Auto) 64.5 % 11/30/24 02:55 Lymph % (Auto) 22.2 % 11/30/24 02:55 [place]by % (Auto) 9.7 % 11/30/24 02:55 Eos % (Auto) 2.9 % 11/30/24 02:55 Baso % (Auto) 0.3 % 11/30/24 02:55 Neut # (Auto) 8.48 10^3/uL (1.8-7.7) H 11/30/24 02:55 Lymph # (Auto) 2.9 10^3/uL (0.8-4.8) 11/30/24 02:55 [place] # (Auto) 1.3 10^3/uL (0.2-0.9) H 11/30/24 02:55 Eos # (Auto) 0.4 10^3/uL (0.0-0.8) 11/30/24 02:55 Baso # (Auto) 0.0 10^3/uL (0.0-0.1) 11/30/24 02:55 Nucleated RBC % (auto) 0 % 11/30/24 02:55 Nucleated RBCs # 0.0 /100WBC 11/30/24 02:55 PT 13.10 SECONDS (12.1-14.9) 11/24/24 17:02 INR 0.93 (0.8-1.2) 11/24/24 17:02 APTT 27.1 SECONDS (23.9-36.7) 11/24/24 17:02 Sodium 135 mmol/L (136-145) L 12/01/24 11:38 Potassium 3.6 mmol/L (3.5-5.1) 12/01/24 11:38 Chloride 101 mmol/L (98-107) 12/01/24 11:38 Carbon Dioxide 19 mmol/L (22-29) L 12/01/24 11:38 Anion Gap 18.6 (5-19) 12/01/24 11:38 BUN 4 mg/dL (6-20) L 12/01/24 11:38 Creatinine 0.4 mg/dL (0.5-0.9) L 12/01/24 11:38 GFR Calculation 171.1 mL/min (90-130) H 12/01/24 11:38 Glucose 108 mg/dL (65-115) 12/01/24 11:38 Estimat Average Glucose 108 11/24/24 17:02 Hemoglobin A1c 5.4 % (4.0-6.0) 11/24/24 17:02 Calculated Osmolality 277 mOsm/kg (285-295) L 12/01/24 11:38 Lactic Acid 0.8 mmol/L (0.5-2.2) 11/24/24 17:02 Lactate 0.8 mmol/L (0.5-2.2) 11/30/24 02:55 Calcium 7.7 mg/dL (8.5-10.5) L 12/01/24 11:38 Phosphorus 2.6 mg/dL (2.5-4.5) 11/30/24 02:55 Magnesium 1.8 mg/dL (1.7-2.3) 11/30/24 02:55 Total Bilirubin 0.2 mg/dL (0.15-1.2) 11/30/24 02:55 AST 10 U/L (0-32) 11/30/24 02:55 ALT 14 U/L (0-33) 11/30/24 02:55 Alkaline Phosphatase 75 U/L (35-105) 11/30/24 02:55 C-Reactive Protein 6.4 mg/L (0.0-4.9) H 11/24/24 17:02 NT-Pro-B Natriuret Pep 85 pg/mL (0-125) 11/24/24 17:02 Total Protein 5.4 g/dL (6.6-8.7) L 11/30/24 02:55 Albumin 2.6 g/dL (3.5-5.2) L 11/30/24 02:55 Globulin 2.8 g/dL (1.3-4.6) 11/30/24 02:55 Triglycerides 153 mg/dL (0-150) H 11/24/24 17:02 Cholesterol 153 mg/dL (0-200) 11/24/24 17:02 LDL Cholesterol, Calc 68 mg/dL (50-129) 11/24/24 17:02 HDL Cholesterol 54 mg/dL (60-100) L 11/24/24 17:02 LDL/HDL Ratio 1.26 RATIO (0.00-3.22) 11/24/24 17:02 Cholesterol/HDL Ratio 2.83 mg/dL (0.0-4.40) 11/24/24 17:02 Lipase 18 U/L (13-60) 11/24/24 09:39 Carcinoembryonic Ag 3.7 ng/mL (0.0-4.7) 11/24/24 17:02 Procalcitonin 0.06 ng/mL (0-0.5) 11/24/24 17:02 TSH 3.71 uIU/mL (0.27-4.20) 11/24/24 17:02 Ser , Semi-Qnt < 1.00 mIU/mL 11/24/24 17:02 Urine Color Dark yellow (Yellow) A 11/25/24 10:00 Urine Appearance Cloudy (CLEAR) A 11/25/24 10:00 Urine pH 5.5 (5-7) 11/25/24 10:00 Ur Specific [place] 1.035 (1.005-1.030) H 11/25/24 10:00 Urine Protein Trace (Negative) A 11/25/24 10:00 Urine Glucose (UA) Negative (Normal) 11/25/24 10:00 Urine Ketones 2+ (Negative) H 11/25/24 10:00 Urine Blood Negative (Negative) 11/25/24 10:00 Urine Nitrate Negative (Negative) 11/25/24 10:00 Urine Bilirubin Negative (Negative) 11/25/24 10:00 Urine Urobilinogen 1.0 mg/dL (Negative) 11/25/24 10:00 Ur Leukocyte Esterase 2+ (Negative) A 11/25/24 10:00 Urine RBC 3-5 /hpf (0-2) 11/25/24 10:00 Urine WBC 51-100 /hpf (0-5) H 11/25/24 10:00 Ur Squamous Epith Cells 11-20 /hpf (0-5) H 11/25/24 10:00 Amorphous Sediment Not Reportable 11/25/24 10:00 Urine Bacteria 2+ /hpf (NONE) H 11/25/24 10:00 Hyaline Casts 6.61 /lpf 11/25/24 10:00 Coronavirus (PCR) Negative (Negative) 11/24/24 11:23 Influenza A (PCR) Negative (Negative) 11/24/24 11:23 Influenza Type B (PCR) Negative (Negative) 11/24/24 11:23 RSV (PCR) Negative (Negative) 11/24/24 11:23 Blood Type A Positive 11/27/24 09:33 Rho(D) Type Rh positive 11/27/24 09:33 Antibody Screen Negative 11/27/24 09:33 Crossmatch See Detail 11/27/24 09:33 Procedures Performed Colonoscopy with biopsy Left hemicolectomy with colostomy formation Vitals Last Vital Signs Temp 98.2 F 12/01/24 16:00 Pulse 94 12/01/24 16:00 Resp 18 12/01/24 16:00 BP 108/78 12/01/24 16:00 Pulse Ox 96 12/01/24 16:00 O2 Del Method Room Air 12/01/24 07:39 O2 Flow Rate 6 11/27/24 11:23 Discharge Plan Discharge Patient Disposition: Home Condition: Stable Prescriptions: New hydrocodone-acetaminophen 7.5-325 mg tablet 1 tab PO Q6H PRN (Reason: pain) Qty: 20 0RF docusate sodium [Colace] 100 mg capsule 100 mg PO BID Qty: 14 0RF polyethylene glycol 3350 [Miralax] 17 gram/dose powder 17 g PO DAILY 7 Days Qty: 119 0RF Held acetaminophen 500 mg Tablet 500 mg PO Q6H PRN (Reason: Pain) Hold Instructions: Resume on 12/06/24. Discharge Orders: Discharge Order (Routine); Ordered 12/01/24 Ordered By: Efrain Lundberg Referrals: Allison Scanlon FNP [Referring] - 12/08/24 1:00 pm (This appointment is to establish primary care provider. Please arrive 30mins early to complete paperwork and if you are wanting to do sliding scale fee you will need to bring in 2022 taxes. ) Efrian Lundberg DO [Physician] - 2 weeks Discharge Diet: Advance as tolerated Discharge Activity: Limit activity as instructed Patient Instructions: Acute Wound Care (DC), GI Post Discharge Instructions w/ Anesthesia, Opioid Safety, Post Anesthesia Care Activity Restrictions/Additional Instructions: No lifting, pushing or pulling over 15 pounds for 6 weeks. Do not soak incisions underwater for 2 weeks. Shower daily. Discharge Attestations Time Spent in Discharge Care*: less than 30 min Quality Metrics Clinical Quality Measures [ No reported AMI, CVA or VTE this stay] Coding Level of Care Code Acute Code for [facility] Diagnoses Small bowel obstruction K56.609 Colon cancer C18.9 Large bowel obstruction K56.609
--- NOTE | 2024-12-01 17:40 | PC.NURSE ---
Dr. Lundberg wanted to discharge patient but she has no ostomy supplies and will need some to get her through out the weekend.
--- NOTE | 2024-12-01 20:01 | P.PN_ITS ---
Subjective 2 Subjective: 49-year-old female with a past medical h istory of smoking and coronary artery disease, status post myocardial infarction in her twenties, presents with nausea, vomiting, and no bowel movement. The patient was found to have a colonic mass on CT scan in August but did not follow up. She denies any blood in her stool at that time. The patient underwent a CT scan which revealed a high-grade colonic and small bowel obstruction due to a circumferential mass extending over a length of 4.7 cm in the descending colon. Small lymph nodes were noted adjacent to the mass. The patient's surgical history is significant for a prior cholecystectomy. An NG tube was placed. Colonoscopy on 11/26/2024 revealed a partially obstructing, large, malignant-appearing circumferential mass in the proximal descending colon with stigmata of bleeding. A small, more distal lesion may have been missed due to poor prep. The patient underwent a left hemicolectomy with colostomy formation and takedown of the splenic flexure on 11/27/2024. Intraoperatively, the mass was noted to be almost completely obstructing. A small splenic tear occurred with diffuse bleeding, managed with thrombin and tranexamic acid. Estimated blood loss was 580 mL. Postoperatively on 11/28-> the patient remains on normal saline via NG tube with outputs of 200 mL plus an additional 900 mL overnight. No bowel movement has been noted. The patient reports significant abdominal pain and soreness. 11/29 No new clinical events overnight No fever, or chills Noted stable abdominal sorness postop No return of bowel function 11/30 - Patient today was noted to have gas/ou tput from colostomy. Was not feeling nauseus, no emesis. no fever, chill, nausea or vomiting. Was able to ambulate. 12/01 - Tolerating clears - Feeling much better - continue output from colostomy Vitals/I&O/Wt Last Vital Signs Temp 98.2 F 12/01/24 16:00 Pulse 94 12/01/24 16:00 Resp 18 12/01/24 16:00 BP 108/78 12/01/24 16:00 Pulse Ox 96 12/01/24 16:00 O2 Del Method Room Air 12/01/24 07:39 O2 Flow Rate 6 11/27/24 11:23 12/01/24 12/01/24 12/01/24 06:59 14:59 22:59 Intake Total 1030 / 2235.000 1021.25 / 1021.25 1840 / 2861.25 Output Total 50 / 850 450 / 450 Balance 980 / 1333.558 4322.25 / 1021.25 1390 / 2411.25 Weight last 48 hrs Weight 87.362 kg Weight 87.362 kg Physical Exam 2 Const: COMMON NORMALS: patient oriented x3 Resp: COMMON NORMALS: normal respiratory effort, No retractions, No use of accessory muscles and clear to auscultation bilaterally AUSCULTATION: clear to auscultation bilaterally Cardio: COMMON NORMALS: regular rate, regular rhythm, S1 normal heart sound present and S2 normal heart sound present RATE: regular rate RHYTHM: r egular rhythm HEART SOUNDS: S1 normal heart sound present and S2 normal heart sound present GI: OTHER: Post op- Colostomy in place - no BM Extremity: COMMON NORMALS: no pedal edema Neuro: COMMON NORMALS: patient oriented x3 Psych: COMMON NORMALS: mental status grossly normal Urinary Catheter Management: Abraham Latex: Cath Placed During This Visit: yes, but has since been removed by the nurse Reason for Continuing Indwelling Catheter: Other Urinary Catheter Date of Insertion: 11/27/24 Urinary Catheter Time of Insertion: 08:05 Date Urinary Catheter Removed: 12/01/24 Time Urinary Catheter Discontinued: 12:30 Data 11/30/24 02:55 12/01/24 11:38 A&P Assessment and plan (1) Small bowel obstruction: Plan Descending Colon Cancer with High-Grade Obstruction - Status post left hemicolectomy with colostomy and splenic flexure takedown on 11/27/2024. Intraoperative findings of near-complete obstruction and small splenic tear with 580 mL blood loss. - Pathology- pending Plan: 1.Continue colostomy care 2. NG removed 3. D/C zosyn 4. Follow up on Surgical pathology to confirm diagnosis and guide further management.- pending 5. Repeat CBC/BMP in am 6. Advance diet per Surgery D/c once home care/colostomy supplies and training PDMP PDMP Reviewed: Not Reviewed Attestations 2 Medical Necessity Statement*: Patient requires hospitalization for obstruction with colonic mass status post surgical intervention Coding Level of Care Code Acute Code for Chg Fwd Diagnoses Small bowel obstruction K56.609
[2024-12-02] VITALS (7 sets, daily range): BP systolic 90–98; BP diastolic 54–69; PULSE 85–112; RESP 15–20; TEMP 36.4–36.6; O2SAT 94–96
--- NOTE | 2024-12-02 01:01 | PC.NURSE ---
colostomy bag change this nurse answered pt call light at approx 0010. pt colostomy bag had overfilled and saturated bed/ linens. this nurse helped pt to shower and room was cleaned and bedding changed. pt colostomy and dressing changed at this time. pt tele box saturated as well, placed in bio bag for cleaning and box replaced. pt had no further needs.
[2024-12-02] MEDS: pantoprazole 40 mg SDV IVP ×2 (01:42→14:32)
[2024-12-02 04:37] LABS: Basophils % 0.2 %; Eosinophils # 0.4 10^3/uL (0.0-0.8); Eosinophils % 3.4 %; Hematocrit 33.3 % (36-47); Lymphocytes # 2.5 10^3/uL (0.8-4.8); Lymphocytes % 19.7 %; Mean Corpuscular HGB Conc 32.4 g/dL (30-55); Mean Corpuscular Hemoglobin 29.7 pg (27-33); Mean Corpuscular Volume 91.5 fl (85-98); Mean Platelet Volume 10.4 fL (7.4-10.4); Monocytes # 1.3 10^3/uL (0.2-0.9); Monocytes % 10.7 %; Neutrophils % 65.6 %; Nucleated Red Blood Cells % 0 %; Platelet Count 335 10^3/cmm (157-399); Red Blood Count 3.64 10^6/uL (3.85-5.65); Red Cell Distribution Width 12.6 % (12.1-15.1); White Blood Count 12.51 10^3/uL (3.29-11.43)
[2024-12-02 04:59] LABS: Alanine Aminotransferase 8 U/L (0-33); Albumin Level 2.6 g/dL (3.5-5.2); Alkaline Phosphatase 67 U/L (35-105); Anion Gap 13.1 (5-19); Aspartate Amino Transferase 8 U/L (0-32); Blood Urea Nitrogen 4 mg/dL (6-20); Calcium 8.2 mg/dL (8.5-10.5); Carbon Dioxide 27 mmol/L (22-29); Chloride 103 mmol/L (98-107); Creatinine Clr Calc Pharmacy 191.8324; Globulin 2.9 g/dL (1.3-4.6); Glomerular Filtration Rate 132.2 mL/min (90-130); Glucose 125 mg/dL (65-115); Osmolality Calculated 288 mOsm/kg (285-295); Potassium 3.1 mmol/L (3.5-5.1); Sodium 140 mmol/L (136-145); Total Bilirubin 0.2 mg/dL (0.15-1.2); Total Protein 5.5 g/dL (6.6-8.7)
[2024-12-02] MEDS: potassium chloride ER 20 mEq Tablet PO (09:16)
[2024-12-02] MEDS: nystatin powder 15 gm Btl 1 APPLIC TOPICAL (09:18)
== END 2024-12-02 17:00 | disposition home or self-care (01) | DRG 330 ==
LOC: ER 12:10 → MEDSURG 13:14
PROVIDERS: Student in an Organized Health Care Education/Training Program; Surgery; Admitting Provider Family Medicine; Emergency Provider Emergency Medicine; Visit Provider Hospitalist
PROC: 0DJD8ZZ Inspection of Lower Intestinal Tract, Via Natural or Artificial Opening Endoscopic (ICD-10-PCS; CPT 45378; principal; 2024-11-26 08:00)
PROC: 0DTG0ZZ Resection of Left Large Intestine, Open Approach (ICD-10-PCS; principal; 2024-11-27 08:00)
PROC: 0DTG0ZZ Resection of Left Large Intestine, Open Approach (ICD-10-PCS; CPT 44320; 2024-11-27 08:00)
DX: C18.6 Malignant neoplasm of descending colon (principal); D62 Acute posthemorrhagic anemia; K56.690 Other partial intestinal obstruction; D78.11 Accidental puncture and laceration of the spleen during a procedure on the spleen; T74.11XA Adult physical abuse, confirmed, initial encounter; I25.2 Old myocardial infarction; F17.200 Nicotine dependence, unspecified, uncomplicated; E86.0 Dehydration; F31.9 Bipolar disorder, unspecified; X58.XXXA Exposure to other specified factors, initial encounter; I25.10 Atherosclerotic heart disease of native coronary artery without angina pectoris; Z88.8 Allergy status to other drugs, medicaments and biological substances; Z90.49 Acquired absence of other specified parts of digestive tract; Z85.07 Personal history of malignant neoplasm of pancreas; Y07.010 Husband, current, perpetrator of maltreatment and neglect; Y65.8 Other specified misadventures during surgical and medical care; E87.6 Hypokalemia
CPT/HCPCS: 36415; 45380; 51702; 71045; 74177; 80048; 80053; 80061; 81001; 82378; 83036; 83605; 83690; 83735; 83880; 84100; 84145; 84443; 84702; 85014; 85018; 85025; 85610; 85730; 86140; 86850; 86900; 86920; 87040; 87637; 88305; 88309; 94664; 96372; 96374; 99285; J0171; J0696; J1100; J1171; J1650; J2250; J2270; J2405; J2470; J2543; J2704; J2765; J3010; J3480; J3490; J7030

== ENCOUNTER 2025-02-02 17:04 | Oncology outpatient (recurring) (ONCR) | payer MEDICAID, SELFPAY ==
[2025-01-26 09:05] LABS: Basophils # 0.1 10^3/uL (0.0-0.1); Basophils % 0.8 %; Eosinophils # 0.3 10^3/uL (0.0-0.8); Hematocrit 39.7 % (36-47); Lymphocytes % 45.5 %; Mean Corpuscular HGB Conc 31.2 g/dL (30-55); Mean Corpuscular Hemoglobin 28.4 pg (27-33); Mean Corpuscular Volume 91.1 fl (85-98); Mean Platelet Volume 9.8 fL (7.4-10.4); Monocytes # 0.6 10^3/uL (0.2-0.9); Monocytes % 9.4 %; Neutrophils % 40.1 %; Nucleated Red Blood Cells % 0 %; Platelet Count 276 10^3/cmm (157-399); Red Blood Count 4.36 10^6/uL (3.85-5.65); Red Cell Distribution Width 14.3 % (12.1-15.1); Reticulocyte % 1.1 % (0.5-2.0); White Blood Count 6.48 10^3/uL (3.29-11.43)
[2025-01-26 09:24] LABS: Alanine Aminotransferase 20 U/L (0-33); Albumin Level 4.1 g/dL (3.5-5.2); Alkaline Phosphatase 88 U/L (35-105); Anion Gap 13.9 (5-19); Aspartate Amino Transferase 15 U/L (0-32); Blood Urea Nitrogen 15 mg/dL (6-20); Carbon Dioxide 25 mmol/L (22-29); Chloride 106 mmol/L (98-107); Creatinine Clr Calc Pharmacy 184.2634; Ferritin 78 ng/mL (15-150); Globulin 3.4 g/dL (1.3-4.6); Glomerular Filtration Rate 132.2 mL/min (90-130); Glucose 84 mg/dL (65-115); Iron 28 ug/dL (37-145); Lactate Dehydrogenase 126 U/L (135-214); Osmolality Calculated 292 mOsm/kg (285-295); Percent Saturation 8.3 % (20-50); Potassium 3.9 mmol/L (3.5-5.1); Sodium 141 mmol/L (136-145); Total Bilirubin 0.2 mg/dL (0.15-1.2); Total Iron Binding Capacity 334 mcg/dl; Total Protein 7.5 g/dL (6.6-8.7); Unsaturated Iron Binding 306 ug/dL (112-347)
[2025-01-26 09:39] LABS: Vitamin B12 311 pg/mL (232-1245)
[2025-01-26 09:48] LABS: Folate Level 10.3 ng/mL (4.8-37.3)
[2025-01-26 10:01] LABS: Carcinoembryonic Antigen 2.3 ng/mL (0.0-4.7)
--- NOTE | 2025-02-02 17:00 | CT_ITS ---
WS: [id number] CT CHEST, ABDOMEN AND PELVIS WITH CONTRAST HISTORY: malignant neoplasm of descending colon TECHNIQUE: Contiguous 5 mm axial imaging performed through the chest, abdomen and pelvis with IV contrast, oral contrast has been provided. Coronal and sagittal reformats chest. Coronal and sagittal reformats through the abdomen and pelvis. All CT scans at [facility] use at least one of these dose optimization techniques: automated exposure control; mA and/or kV adjustment per patient size (includes targeted exams where dose is matched to clinical indication); or iterative reconstruction. CONTRAST: Omnipaque 350; 100 mL IV. DLP: 1014.67 mGy.cm COMPARISON: 11/24/2024, Chest CT: 2 mm RIGHT upper lobe noncalcified nodule, image 14 series 5. No additional mass or pulmonary nodule. No pericardial or pleural effusions. Normal thoracic aorta and pulmonary artery. No mediastinal or hilar lymphadenopathy. Heart size is normal. Chest wall is negative. Small hiatal hernia. No destructive bone lesions. Abdomen CT: Liver is top normal size. Very slight heterogeneity within the liver. No mass or metastatic disease identified. Normal portal vein. Prior cholecystectomy. Spleen is normal size. There is a small amount of fluid adjacent to the spleen. Some of this fluid may be subcapsular. No splenic infarc t. Normal pancreas. No renal obstruction. Kidneys are enhancing normally. There is a very tiny cortical hypodensity mid RIGHT kidney. Very mild atherosclerosis thoracic aorta. Limited opacification of the mesenteric arteries is related to injection technique. No filling defect or thrombus identified. No free air. There are a few small lymph nodes in the LEFT upper abdomen which have not increased in size since 11/24/2024. Since the prior examination patient's undergone a LEFT hemicolectomy with LEFT lower quadrant colostomy. There is no obstruction or complication identified with the surgery. Previously described high-grade obstruction has resolved. Postsurgical changes along the anterior abdominal wall. Stomach is well distended. No outlet obstruction. Pelvic CT: Well-distended urinary bladder. Hale's pouch unremarkable. No free fluid in the pelvis. No destructive bone lesions. Stable sclerotic focus in the RIGHT femoral head. This is probably a benign bone island. CT/CT chest abdpel w/*[id number] IMPRESSION: 1. Status post LEFT hemicolectomy since the prior study. LEFT lower quadrant c olostomy site. No complications from the surgery. 2. Previously described high-grade obstruction has resolved. 3. No metastatic disease to the liver or adrenal glands. 4. There is a small amount of fluid adjacent to the spleen, some of this fluid does appear subcapsular. This is new since the prior study may be related to t he recent surgery. No additional ascites or fluid identified. This can be reeva luated on follow-up studies. 5. No pulmonary metastatic sites. 6. There are a few, small lymph nodes in the LEFT upper quadrant which have no t changed in size since 11/24/2024.
[2025-02-02] MEDS: iohexol 350 mg/mL 500 mL Btl (per mL) PO (17:20)
[2025-02-02] MEDS: iohexol 350 mg/mL 500 mL Btl (per mL) IV (18:25)
== END 2025-02-15 23:59 | disposition home or self-care (01) ==
LOC: ONCMED 17:08 → RAD 02-03
PROVIDERS: Visit Provider Internal Medicine
DX: Z53.9 Procedure and treatment not carried out, unspecified reason; C18.6 Malignant neoplasm of descending colon; Z90.49 Acquired absence of other specified parts of digestive tract; Z93.3 Colostomy status; R18.8 Other ascites
CPT/HCPCS: 36415; 71260; 74177; 80053; 82378; 82607; 82728; 82746; 83010; 83540; 83550; 83615; 85025; 85045

== ENCOUNTER 2025-03-15 08:59 | Day surgery (SDC) | payer MEDICAID, SELFPAY ==
[2025-03-15] VITALS (8 sets, daily range): BP systolic 106–138; BP diastolic 63–89; PULSE 65–87; RESP 15–18; TEMP 36.1–36.4; O2SAT 96–100; BMI 38.3
[2025-03-15] MEDS: sodium chloride 0.9% 1,000 ML 30 ML IV (09:50)
--- NOTE | 2025-03-15 09:53 | W.PM.OPSFHP ---
Same Day Surgery H&P Indication for Procedure/HPI DATE OF PROCEDURE: March 15, 2025 CHIEF COMPLAINT/INDICATIONFOR SURGICAL PROCEDURE: colorectal cancer PREOP DIAGNOSIS: colorectal cancer PLANNED PROCEDURE: Operation Date: 03/15/25 12:45 Proposed Procedures p Portacath Placement 92563 C18.6 Z95.828(Not Applicable) - Wang Hightower MD Medications/Allergies* Home Medications ?Medication ?Instructions ?Recorded ?Confirmed ?Type aspirin 81 mg tablet,delayed 81 mg PO DAILY 01/26/25 03/15/25 History release (Adult Low Dose Aspirin) Allergies/Adverse Reactions Allergy/AdvReac Type Severity Reaction Status Date / Time calamine Allergy Severe ALGY-Rash Verified 03/15/25 09:33 calcium carbonate (From DHEA) AdvReac Mild Unknown Verified 03/15/25 09:33 calcium phosphate,dibasic AdvReac Mild Unknown Verified 03/15/25 09:33 (From DHEA) prasterone (DHEA) (From DHEA) AdvReac Mild Unknown Verified 03/15/25 09:33 Pertinent History/Comorbid Conditions* Surgical History (Updated 12/22/24 @ 11:54 by Efrain Lundberg DO) History of hemicolectomy Left hemicolectomy with colostomy formation- 11/27/24 Dr Lundberg History of cholecystectomy No pertinent past surgical history Social History Smoking and tobacco/nicotine status: light tobacco/nicotine user Alcohol intake: never Substance/Drug Use: never Pertinent Exam Findings alert, oriented x 3, clear to auscultation bilaterally and regular rate & rhythm Recommendations Risks and benefits of procedure reviewed Surgery/Procedure today Coding Level of Care Code Acute Code for Chg Fwdeborah
--- NOTE | 2025-03-15 09:54 | P.ANESASSM_ITS ---
Pre-Anesthetic Assessment Height/Weight: Height 1.5 m Weight 86.183 kg Temp Pulse Resp BP Pulse Ox O2 Del Method 97 F L 72 16 128/76 98 Room Air 03/15/25 09:44 03/15/25 09:44 03/15/25 09:44 03/15/25 09:44 03/15/25 09:44 03/15/25 09:44 Preop Diagnosis: colorectal cancer Operation Date: 03/15/25 12:45 Proposed Procedures p Portacath Placement 58628 C18.6 Z95.828(Not Applicable) - Wang Hightower MD Familial anesthetic complications: None Was Beta Thor taken within 24 hours: N/A Was Clonidine taken within 24 hours: N/A Last intake: Intake Last Liquid Date 03/14/25 Last Liquid Time 23:30 Last Solid Date 03/14/25 Last Solid Time 23:30 Social Tobacco and No alcohol hx meth Exam alert, oriented x 3, clear to auscultation bilaterally and regular rate & rhythm Airway Mallampati: Class I Dentition: chipped CV/HEM Anemia GI colon cancer Anesthetic Plan ASA status: 4 Anesthesia: General Risk of > 500 ml blood loss (7ml/kg in children): No Medications/Allergies Home Medications ?Medication ?Instructions ?Recorded ?Confirmed ?Last Taken ?Type Ostomy supplies #1 ea 01/26/25 02/09/25 Unkn own Rx aspirin 81 mg tablet,delayed 81 mg PO DAILY 01/26/25 0 03/15/25 03/13/25 10:00 History release (Adult Low Dose Aspirin) Allergies Allergy/AdvReac Type Severity Reaction Status Date / Time calamine Allergy Severe ALGY-Rash Verified 03/15/25 09:33 calcium carbonate (From DHEA) AdvReac Mild Unknown Verified 03/15/25 09:33 calcium phosphate,dibasic AdvReac Mild Unknown Verified 03/15/25 09:33 (From DHEA) prasterone (DHEA) (From DHEA) AdvReac Mild Unknown Verified 03/15/25 09:33 [facility] Anesthesia Surgical History History of hemicolectomy Left hemicolectomy with colostomy formation- 11/27/24 Dr Lundberg History of cholecystectomy No pertinent past surgical history Social History Smoking and tobacco/nicotine status: light tobacco/nicotine user Alcohol intake: never Substance/Drug Use: never
[2025-03-15] MEDS: ceFAZolin 2,000 mg SDV 2000 MG IVP (11:00)
--- NOTE | 2025-03-15 11:05 | SC_ITS ---
WS: [id number] C-arm fluoroscopy for port insertion, 03/15/2025 Clinical Data: PORT Comparison: Portable chest, 11/24/2024 Findings: Dr. Hightower inserted the right infusion catheter. SC/C-arm FL for CVA [id number] Impression: Insertion of infusion port.
[2025-03-15] MEDS: lidocaine-epi 1% 20 mL INJ INJECTION (11:20)
[2025-03-15] MEDS: heparin, porcine 1,000 unit/mL INJ 10 mL 10000 UNIT IRRIGATION (11:20)
[2025-03-15] MEDS: BUPivacaine 0.25% INJ 30 mL INJECTION (11:20)
--- NOTE | 2025-03-15 11:38 | P.OP_ITS ---
Operative Report Date of procedure: March 15, 2025 Pre-op diagnosis: Colorectal cancer Post-op diagnosis: same Post-op findings: Tip of catheter at atriocaval junction confirmed with intraoperative fluoroscopy. Port tested and fully functional. Procedure done: Port-A-Cath placement Implants: Port-A-Cath Specimens removed/disposition: N/A Pathology: none sent Surgeon: Wang Hightower MD Statistician Applied: N/A Anesthesia: MAC Estimated blood loss (mL): 20 Complications: N/A Findings: Tip of catheter at atriocaval junction confirmed with intraoperative fluoroscopy. Port tested and fully functional. Condition: stable Disposition: same day Brief History: 49-year-old female who presented for Port-A-Cath placement. Discussed risk and benefits and patient agreed to proceed. Procedure: Patient was brought into the operating room and a timeout was carried out. Procedure was done under MAC. Patient was placed supine with the arms tucked and in Trendelenburg. Patient was prepped and draped in the usual sterile fashion. Using ultrasound guidance the right internal jugular vein was accessed. A guidewire was then placed down to the atriocaval junction using fluoroscopy. The finder needle was removed and the guidewire was secured. I then turned my attention to creating a pocket over the right chest. Make sure to locally infiltrated using plain lidocaine and bupivacaine at the site of the pocket and throughout the tunnel site. I confirmed adequate hemostasis at the pocket. I then proceeded to place the port that was already preassembled and flushed with heparinized saline and the chest pocket. I tunneled the catheter from the chest to the neck at the site where I accessed the internal jugular vein. I measured and adjusted the length of the catheter so it would reach the atrial caval junction. At this point, I used a dilator to dilate the tract into the internal jugular vein using fluoroscopy. I removed the guidewire and proceeded to thread the central venous catheter through the introducer. In the process, I removed the sheath as a completely pushed the catheter into the internal jugular vein. I then confirmed adequate placement of the catheter by performing intraoperative interpretation of fluoroscopy. The tip of the c atheter was confirmed to be placed in the atriocaval junction. There were no kinks noted throughout the trajectory of the catheter. I then proceeded to test the port and was satisfied with its functionality. I proceeded to flushed the catheter without any issues. I then hep-locked the port. Skin was closed using deep dermal 3-0 Vicryl, subcuticular 4-0 Monocryl, and Dermabond. Patient was then transferred to PACU without any complications.
--- NOTE | 2025-03-15 13:20 | ANE.PACU2 ---
Inpatient post-anesthesia follow up: Airway intact: Yes Vital signs: Temperature 97.6 F Pulse Rate 69 Respiratory Rate 16 Blood Pressure 118/89 Pulse Oximetry 100 Oxygen Delivery Me thod Room Air Oxygen Flow Rate 6 Fraction of Inspir ed Oxygen Hydration adequate: Yes Nausea and vomiting: No Pain level: 1 Mental status: Baseline
== END 2025-03-15 13:20 | disposition home or self-care (01) ==
PROVIDERS: Visit Provider Student in an Organized Health Care Education/Training Program
PROC: (CPT 36561; principal; 2025-03-15 12:45)
DX: C18.9 Malignant neoplasm of colon, unspecified (principal); F15.11 Other stimulant abuse, in remission; Z79.82 Long term (current) use of aspirin; F17.200 Nicotine dependence, unspecified, uncomplicated
CPT/HCPCS: 36561; 76000; 77001; C1788; J0690; J1644; J2250; J2704; J3010; J3490; J7030; J9999

== ENCOUNTER 2025-03-21 12:15 | Oncology outpatient (recurring) (ONCR) | payer MEDICAID, SELFPAY ==
[2025-03-20 09:12] LABS: Basophils # 0.1 10^3/uL (0.0-0.1); Basophils % 0.9 %; Eosinophils # 0.3 10^3/uL (0.0-0.8); Eosinophils % 3.7 %; Hematocrit 40.6 % (36-47); Lymphocytes # 5.2 10^3/uL (0.8-4.8); Lymphocytes % 55.9 %; Mean Corpuscular Hemoglobin 28.1 pg (27-33); Mean Corpuscular Volume 90.6 fl (85-98); Mean Platelet Volume 10.5 fL (7.4-10.4); Monocytes # 0.7 10^3/uL (0.2-0.9); Monocytes % 7.9 %; Neutrophils # 2.91 10^3/uL (1.8-7.7); Neutrophils % 31.5 %; Nucleated Red Blood Cells % 0 %; Platelet Count 223 10^3/cmm (157-399); Red Blood Count 4.48 10^6/uL (3.85-5.65); Red Cell Distribution Width 14.6 % (12.1-15.1); White Blood Count 9.23 10^3/uL (3.29-11.43)
[2025-03-20 09:36] LABS: Carcinoembryonic Antigen 2.7 ng/mL (0.0-4.7)
[2025-03-20 09:47] LABS: Alanine Aminotransferase 9 U/L (0-33); Albumin Level 3.7 g/dL (3.5-5.2); Alkaline Phosphatase 76 U/L (35-105); Anion Gap 13.2 (5-19); Aspartate Amino Transferase 10 U/L (0-32); Blood Urea Nitrogen 11 mg/dL (6-20); Calcium 8.2 mg/dL (8.5-10.5); Carbon Dioxide 26 mmol/L (22-29); Chloride 105 mmol/L (98-107); Globulin 2.8 g/dL (1.3-4.6); Glomerular Filtration Rate 132.2 mL/min (90-130); Glucose 94 mg/dL (65-115); Lactate Dehydrogenase 136 U/L (135-214); Osmolality Calculated 289 mOsm/kg (285-295); Potassium 4.2 mmol/L (3.5-5.1); Sodium 140 mmol/L (136-145); Total Bilirubin 0.2 mg/dL (0.15-1.2); Total Protein 6.5 g/dL (6.6-8.7)
--- NOTE | 2025-03-20 16:08 | PC.NURSE ---
Patient was contacted at 15:08 concerning the possibility of leaving the clinic before being deaccessed. Patient stated she did leave without being deaccessed and will be returning tomorrow for another appointment but will come to the clinic so she can be deaccessed. Patient was supposed to begin treatement today and was unable to.
== END 2025-04-17 23:59 | disposition home or self-care (01) ==
PROVIDERS: Nurse Practitioner Family; Visit Provider Internal Medicine
DX: Z53.9 Procedure and treatment not carried out, unspecified reason; Z45.2 Encounter for adjustment and management of vascular access device; Z95.828 Presence of other vascular implants and grafts
CPT/HCPCS: 80053; 82378; 83615; 85025; 96523

== ENCOUNTER 2025-04-10 18:11 | Emergency (ER) | payer MEDICAID, SELFPAY ==
[2025-04-10 18:27] VITALS: BP 126/76; PULSE 81; RESP 17; TEMP 36.8; O2SAT 99; BMI 38.3
--- NOTE | 2025-04-10 19:35 | W.ED.SKABFB ---
HPI - Skin/Abscess/Foreign Bdy General: Chief complaint: Skin/Abscess/Foreign Body Stated complaint: ostomy issues, red, pain Time Seen by Provider: 04/10/25 19:15 History of Present Illness: Patient is a 49-year-old female with ostomy left lower quadrant, recently placed on antibiotics with port infection superficially, presents with pain to her skin and redness where her ostomy sits. She just got new ostomy supplies and thought this was the issue except she has not changed brands. She denies any fevers. Associated symptoms: Deny chills, fever(s), nausea or vomiting Related Data Home Medications ?Medication ?Instructions ?Recorded ?Confirmed aspirin 81 mg tablet,delayed 81 mg PO DAILY 01/26/25 04/03/25 release (Adult Low Dose Aspirin) Previous Rx's ?Medication ?Instructions ?Recorded sulfamethoxazole 800 1 tab PO BID 7 days #14 tabs 03/27/25 mg-trimethoprim 160 mg tablet (Bactrim DS) Ostomy supplies See Rx Instructions .Route 03/28/25 .COMPLEX #1 ea fluconazole 100 mg tablet 100 mg PO DAILY 10 days #10 tabs 04/10/25 (Diflucan) nystatin 100,000 unit/gram topical 1 applic topical BID #60 grams 04/10/25 powder Allergies Allergy/AdvReac Type Severity Reaction Status Date / Time calamine Allergy Severe ALGY-Rash Verified 04/10/25 18:32 calcium carbonate (From DHEA) AdvReac Mild Unknown Verified 04/10/25 18:32 calcium phosphate,dibasic AdvReac Mild Unknown Verified 04/10/25 18:32 (From DHEA) prasterone (DHEA) (From DHEA) AdvReac Mild Unknown Verified 04/10/25 18:32 Review of Systems General: Reports: 10 or more systems reviewed and unremarkable except in HPI and below Const: Denies: fever(s) or chills Eyes: Denies: change in vision or blurry vision ENMT: Reports: uvular edema; Denies: throat pain Card: Denies: chest pain or palpitations Resp: Denies: dyspnea or productive cough GI: Denies: abdominal pain, nausea or vomiting : Denies: flank pain or difficulty voiding Musc: Reports: joint pain (chronic); Denies: neck pain Skin/Breast: Reports: rash, pruritus and skin tenderness Neuro: Denies: headache(s) or numbness in extremities Psych: Denies: anxiety or depression PFSH ED PFSH: Surgical History History of hemicolectomy Left hemicolectomy with colostomy formation- 11/27/24 Dr Lundberg History of cholecystectomy No pertinent past surgical history Social History Smoking and tobacco/nicotine status: current every day tobacco/nicotine user Alcohol intake: never Substance/Drug Use: never Physical Exam Const: COMMON NORMALS: no acute distress, average body habitus and patient oriented x3 HENMT: COMMON NORMALS: normocephalic and atraumatic HEAD & SCALP: normocephalic and atraumatic THROAT: uvular edema Neck/C-Spine: COMMON NORMALS: full ROM, no lymphadenopathy and Thyroid normal GENERAL: Yes normal visual inspection and Yes trachea midline THYROID: Thyroid normal and asymmetrical Resp: COMMON NORMALS: normal respiratory effort and No retractions Cardio: COMMON NORMALS: regular rate and regular rhythm RATE: regular rate RHYTHM: regular rhythm GI: COMMON NORMALS: Normal to inspection, nondistended, normoactive bowel sounds present and Soft to palpation PALPATION: Yes Soft to palpation : COMMON NORMALS: Yes no CVA tenderness BLADDER/KIDNEY EXAM: Yes no CVA tenderness Back/Pelvis: COMMON NORMALS: no CVA tenderness Extremity: COMMON NORMALS: normal to inspection, full ROM and capillary refill normal Neuro: COMMON NORMALS: patient oriented x3 Psych: COMMON NORMALS: mental status grossly normal, Normal thought process present and cooperative THOUGHT PROCESS: Normal thought process present Skin: COMMON NORMALS: turgor normal and no jaundice SKIN IMAGES (FEMALE):  1. Red macular with satellite areas 2. Ostomy 3. port with small 2 cm horizontal area with 3 mm yellow gap GENERAL SKIN EXAM: elasticity normal, turgor normal and erythema RASHES: rashes noted (as picture noted) Course Vital Signs: Vital signs: Vital Signs Temperature 98.3 F 04/10/25 18:27 Pulse Rate 81 04/10/25 18:27 Respiratory Rate 17 04/10/25 18:27 Blood Pressure 126/76 04/10/25 18:27 Pulse Oximetry 99 04/10/25 18:27 Oxygen Delivery Me thod Room Air 04/10/25 18:27 MDM - Skin/Abscess/Foreign Bdy Medicial Decision Making Patient is a 49-year-old female with ostomy left lower quadrant. She was placed on antibiotics due to a superficial skin infection over her port right-sided chest. Over the last 48 hours, and worsening the last 24 hours she has noted a red rash to her abdomen where the ostomy is. She is unable to place her supplies and cover her open ostomy due to a rash. She has not had this before. She just received new supplies, and thought she was allergic to it. This is clearly consistent with a cutaneous candidemia. I will treat her both with topical nystatin and p.o. Diflucan. I suspect it is from antibiotic use. I have recommended probiotic/active culture yogurt while on the rest of her antibiotics for her port cutaneous infection. Lab Data 04/10/25 19:18 04/10/25 19:18 Laboratory Results WBC 9.92 10^3/uL (3.29-11.43) 04/10/25 19:18 RBC 4.52 10^6/uL (3.85-5.65) 04/10/25 19:18 Hgb 12.50 g/dL (11.27-16.99) 04/10/25 19:18 Hct 40.7 % (36-47) 04/10/25 19:18 MCV 90.0 fl (85-98) 04/10/25 19:18 MCH 27.7 pg (27-33) 04/10/25 19:18 MCHC 30.7 g/dL (30-55) 04/10/25 19:18 RDW 14.4 % (12.1-15.1) 04/10/25 19:18 Plt Count 240 10^3/cmm (157-399) 04/10/25 19:18 MPV 10.0 fL (7.4-10.4) 04/10/25 19:18 Neut % (Auto) 53.5 % 04/10/25 19:18 Lymph % (Auto) 37.2 % 04/10/25 19:18 [place] % (Auto) 5.5 % 04/10/25 19:18 Eos % (Auto) 3.0 % 04/10/25 19:18 Baso % (Auto) 0.5 % 04/10/25 19:18 Neut # (Auto) 5.30 10^3/uL (1.8-7.7) 04/10/25 19:18 Lymph # (Auto) 3.7 10^3/uL (0.8-4.8) 04/10/25 19:18 [place] # (Auto) 0.6 10^3/uL (0.2-0.9) 04/10/25 19:18 Eos # (Auto) 0.3 10^3/uL (0.0-0.8) 04/10/25 19:18 Baso # (Auto) 0.1 10^3/uL (0.0-0.1) 04/10/25 19:18 Nucleated RBC % (auto) 0 % 04/10/25 19:18 Nucleated RBCs # 0.0 /100WBC 04/10/25 19:18 Sodium 144 mmol/L (136-145) 04/10/25 19:18 Potassium 4.4 mmol/L (3.5-5.1) 04/10/25 19:18 Chloride 108 mmol/L (98-107) H 04/10/25 19:18 Carbon Dioxide 24 mmol/L (22-29) 04/10/25 19:18 Anion Gap 15.4 (5-19) 04/10/25 19:18 BUN 8 mg/dL (6-20) 04/10/25 19:18 Creatinine 0.5 mg/dL (0.5-0.9) 04/10/25 19:18 GFR Calculation 107.2 mL/min (90-130) 04/10/25 19:18 Glucose 85 mg/dL (65-115) 04/10/25 19:18 Calculated Osmolality 294 mOsm/kg (285-295) 04/10/25 19:18 Calcium 8.4 mg/dL (8.5-10.5) L 04/10/25 19:18 Total Bilirubin 0.2 mg/dL (0.15-1.2) 04/10/25 19:18 AST 10 U/L (0-32) 04/10/25 19:18 ALT 7 U/L (0-33) 04/10/25 19:18 Alkaline Phosphatase 75 U/L (35-105) 04/10/25 19:18 Total Protein 6.7 g/dL (6.6-8.7) 04/10/25 19:18 Albumin 3.5 g/dL (3.5-5.2) 04/10/25 19:18 Globulin 3.2 g/dL (1.3-4.6) 04/10/25 19:18 Lipase 35 U/L (13-60) 04/10/25 19:18 No radiology studies performed this visit Discharge Plan Discharge Patient Disposition: Home Clinical Impression: Marie albicans infection Condition: Stable Prescriptions: New nystatin 100,000 unit/gram powder 1 applic topical BID Qty: 60 0RF fluconazole [Diflucan] 100 mg tablet 100 mg PO DAILY 10 Days Qty: 10 0RF No Action sulfamethoxazole-trimethoprim [Bactrim DS] 800-160 mg tablet 1 tab PO BID 7 Days Qty: 14 0RF aspirin [Adult Low Dose Aspirin] 81 mg tablet,delayed release (DR/EC) 81 mg PO DAILY Ostomy supplies See Rx Instructions .ROUTE .COMPLEX Qty: 1 5RF Rx Instructions: [id number] High Output Drainable Ostomy Pouch [id number] Closed Mini Ostomy Pouch Discharge Orders: Discharge ED (Routine); Ordered 04/10/25 Ordered By: Allyssa Hannah Discharge Diet: Usual diet Discharge Activity: Resume usual activity Patient Instructions: Marie Albicans Antigen (Into the skin) Activity Restrictions/Additional Instructions: Obtain a probiotic to avoid infectious diarrhea and increased Marie/yeast (your current issue). I have sent your nystatin powder and Diflucan to your pharmacy of choice Return to ED for worsening symptoms, fever, drainage. Continue your regular routine however be careful not to remove the skin around your ostomy. Keep dry. Print Language: [place]ese Coding Level of Care Code ED Supervisor Backfilling for Santana Schafer
[2025-04-10 19:54] LABS: Basophils # 0.1 10^3/uL (0.0-0.1); Basophils % 0.5 %; Eosinophils # 0.3 10^3/uL (0.0-0.8); Hematocrit 40.7 % (36-47); Lymphocytes # 3.7 10^3/uL (0.8-4.8); Lymphocytes % 37.2 %; Mean Corpuscular HGB Conc 30.7 g/dL (30-55); Mean Corpuscular Hemoglobin 27.7 pg (27-33); Monocytes # 0.6 10^3/uL (0.2-0.9); Monocytes % 5.5 %; Neutrophils % 53.5 %; Nucleated Red Blood Cells % 0 %; Platelet Count 240 10^3/cmm (157-399); Red Blood Count 4.52 10^6/uL (3.85-5.65); Red Cell Distribution Width 14.4 % (12.1-15.1); White Blood Count 9.92 10^3/uL (3.29-11.43)
[2025-04-10] MEDS: fluconazole 100 mg Tablet 150 MG PO (20:02)
[2025-04-10 20:11] LABS: Albumin Level 3.5 g/dL (3.5-5.2); Alkaline Phosphatase 75 U/L (35-105); Blood Urea Nitrogen 8 mg/dL (6-20); Carbon Dioxide 24 mmol/L (22-29); Creatinine Clr Calc Pharmacy 189.2435; Globulin 3.2 g/dL (1.3-4.6); Glucose 85 mg/dL (65-115); Lipase 35 U/L (13-60); Sodium 144 mmol/L (136-145); Total Bilirubin 0.2 mg/dL (0.15-1.2); Total Protein 6.7 g/dL (6.6-8.7)
[2025-04-10 20:26] LABS: Alanine Aminotransferase 7 U/L (0-33); Anion Gap 15.4 (5-19); Aspartate Amino Transferase 10 U/L (0-32); Chloride 108 mmol/L (98-107); Osmolality Calculated 294 mOsm/kg (285-295); Potassium 4.4 mmol/L (3.5-5.1)
[2025-04-10 20:32] LABS: Calcium 8.4 mg/dL (8.5-10.5); Glomerular Filtration Rate 107.2 mL/min (90-130)
== END 2025-04-10 20:14 | disposition home or self-care (01) ==
PROVIDERS: Emergency Medicine; Emergency Provider Physician Assistant
DX: B37.2 Candidiasis of skin and nail (principal); Z98.890 Other specified postprocedural states; Z72.0 Tobacco use
CPT/HCPCS: 36415; 80053; 83690; 85025; 99283; J9999

== ENCOUNTER 2025-05-27 21:14 | Emergency (ER) | payer MEDICAID, SELFPAY ==
--- OUTSIDE RECORDS SUMMARY | 2025-05-27 21:20 | XMS_ITS | Clinical Summary ---
Author Organization [facility] Chermahi tone Address [address] [place] [address] Care Team Providers Care Twill Cutter Name Role Phone OliverAllison pedersen DO Primary Care Provider Allergies Active Allergy Reactions Criticality Noted Date Comments Calamine Rash High 07/17/2008 [place] kind only Medications OTHERIndication s:Pneumonia, organism unspecified(486 ) Nebulizer and supplies Dx: Pneumonia 1 Device 1 9 Active acetaminophen (TYLENOL EXTRA STRENGTH) 500 mg Oral tablet Take 500 mg by mouth every 6 hours as needed. Active levalbuterol HFA (XOPENEX HFA) 45 mcg/Actuation Inhalation HFAAIndications :Asthma Take 2 Puffs by inhalation every 6 hours. 1 Inhaler 12 0 Active lamoTRIgine (LAMICTAL) 100 mg Oral tablet Take 1 Tab by mouth daily. 30 Tab 12 0 Active ranitidine HCl (ZANTAC) 150 mg Oral CapIndications: Esophageal reflux Take 1 Cap by mouth 2 times daily. 60 Cap 12 0 Active cetirizine (ZYRTEC) 10 mg Oral tabletIndicatio ns:PND (post-nasal drip) Take 1 Tab by mouth daily. 30 Tab 12 0 Active naproxen sodium (ANAPROX DS) 550 mg Oral tablet Take 1 Tab by mouth 3 times daily as needed for Pain. 90 Tab 6 0 Active HYDROcodone-flower taminophen (LORCET ) 10-650 mg Oral TabIndications: Knee pain Take 0.5-1 Tabs by mouth every 6 hours as needed for Pain. 15 Tab 0 1 Active ALPRAZolam (XANAX) 2 mg Oral tabletIndicatio ns:Anxiety state Take 1 Tab by mouth every 4 hours as needed for Anxiety. 120 Tab 0 1 Active nicotine (NICOTROL) 10 mg Inhalation Crtg Take 1 Puff by inhalation PRN for Smoking Cessation. 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 Gender Identity Not on file Sexual Orientation Not on file Occupation Industry Job Start Date Job End Date disabled Not on file Not on file Not on file Last Filed Vital Signs Vital Sign Reading Time Taken Comments Blood Pressure 124/72 10/24/2010 2:39 PM DRAWING IN MACHINE TENDER Pulse 80 05/28/2010 10:09 AM CDT Temperature 36.4 C (97.5 F) 05/28/2010 10:09 AM CDT Respiratory Rate 20 05/28/2010 10:09 AM CDT Oxygen Saturation - - Inhaled Oxygen Concentration - - Weight 86.2 kg (190 lb) 10/24/2010 2:39 PM DRAWING IN MACHINE TENDER Height - - Body Mass Index - - Plan of Treatment Health Maintenance Due Date Last Done Comments DTAP/TDAP/TD VACCINES (1 - Tdap) 1996 HEPATITIS B VACCINES (1 of 3 - 19+ 3-dose series) 06/19 Preventative Visit-Managed Medicaid 1996 HPV/Cotest (21-29) 1998 CERVICAL CANCER SCREENING 2007 HPV/Cotest (30-65) 2007 PAP SMEAR 2007 BREAST CANCER SCREENING 2017 COLORECTAL SCREENING 2022 Colorectal Cancer Screening 2022 FIT-DNA Q 3 years 2022 FIT/FOBT Q 1 year 2022 Flex Sig/CT Colonography Q 5 years 2022 INFLUENZA VACCINE (#1) 2025 Insurance MEDICAID [place] Care Teams Twill Cutter Relationship Specialty Start Date End Date Allison Boyd DO [address] [place] [address] PCP - General 04/12/09
--- OUTSIDE RECORDS SUMMARY | 2025-05-27 21:20 | XMS_ITS | Encounter Summary ---
Author Organization [facility] Address [address] [place] [address] Care Team Providers Care Roll Form Operator Name Role Phone Allison Boyd Primary Care Provider [phone] Encounter Details Date Type Department Care Team (Late st Contact Info) Description 11/30/2007 Outpatient Historical [facility] Medicine- [place] [address] [place] [address] Ramone Pérez MD [address] [place] [phone] Social History Tobacco Use Types Packs/Day Years Used Date Smoking Tobacco: Never Assessed Comments Unknown Sex and Gender Information Value Date Recorded Sex Assigned at Not on file 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 [address] [place] [address] PATIENT NAME: Sydnee Sharma CHART #: [id number] DATE OF SERVICE: 11/30/2007 DATE OF :1975 Patient Name: Sydnee Sharma DOS: 11/30/2007 : 1975 VITALS: Weight: 198.0 pounds. Pulse: . BP: 118/62. Subjective: 32 year old female comes primarily for upper respiratory infection symptoms. Moderatelysore throat. Lots of head congestion and nasal drainage. Some cough. Nonproductive. Symptoms developed over the past few days. Patient has three children in the office with similar symptoms and one with suppurative conjunctivitis. Objective: Exam reveals overweight but otherwise well-developed, well-nourished adult female in no distress. HEENT: TMs and canals unremarkable. Nasal membranes edematous with clear rhinorrhea. Throat mild tomoderate erythema without exudate. Rapid strep swab taken. Neck: Supple, without significant adenopathy. Lungs: Clear throughout, respiration nonlabored. Slightly coarse breath sounds with cough but no rhonchi. Heart: Regular rate and rhythm without appreciable murmur Rapid strep swab: Negative Assessment: 1. Viral URI Plan: Reviewed general supportive care. Antibiotics not indicated. Have given children Robitussin with codeine cough medicine. She may use some of this if cough severe. Contact us if not improving. Ramone Pérez M.D. Ramone Pérez M.D. [facility] Electronically Signed by Ramone Pérez M.D. 01/04/2008 08:33 , P, Job #: Document #: [id number] cc: documented in this encounter Plan of Treatment Not on file documented as of this encounter Visit Diagnoses Not on filedocumented in this encounter Care Teams Roll Form Operator Relationship Specialty Start Date End Date Allison Boyd DO [address] [place] [address] PCP - General 04/12/09 documented as of this encounter
[2025-05-27 21:35] VITALS: BP 117/69; PULSE 98; RESP 16; TEMP 36.8; O2SAT 98
== END 2025-05-27 23:10 | disposition left against medical advice (07) ==
PROVIDERS: Emergency Provider Family Medicine
DX: Z53.21 Procedure and treatment not carried out due to patient leaving prior to being seen by health care provider (principal)

== ENCOUNTER 2025-05-29 14:29 | Emergency (ER) | payer MEDICAID, SELFPAY ==
[2025-05-29 14:34] VITALS: BP 125/76; PULSE 83; RESP 16; TEMP 36.8; O2SAT 97; BMI 38.3
--- NOTE | 2025-05-29 14:52 | ED_ITS ---
HPI - Skin/Abscess/Foreign Bdy 2 General: Chief complaint: Skin/Abscess/Foreign Body Stated complaint: port site inflamed swollen Time Seen by Provider: 05/29/25 14:41 Source: patient Mode of arrival: ambulatory Limitations: no limitations History of Present Illness: Patient is a nice 49-year-old female here for concerns of redness surrounding her right chest Port-A-Cath site. She states she got a cath placed back in February by Dr. Hightower for upcoming chemotherapy for treatment of her colorectal cancer. Patient states she began noticing redness over the past 5 days or so. She is not having any systemic symptoms such as fevers, chills, body aches, nausea or vomiting. She has not noticed any discharge from the site. She does report a small amount of wound dehiscence from the initial surgical incision. She states she had similar symptoms back in March after it was placed and saw Dr. Hightower for this. MD complaint: other (redness around her port a cath) Onset (ago): day(s) Tetanus up to date: yes Location: chest Severity: mild Relieving factors: none Exacerbating factors: none Context: none Associated symptoms: Reports no associated symptoms; Deny chills, fever(s), nausea or vomiting Treatments prior to arrival: none Related Data Home Medications ?Medication ?Instructions ?Recorded ?Confirmed aspirin 81 mg tablet,delayed 81 mg PO DAILY 01/26/25 0 04/03/25 release (Adult Low Dose Aspirin) Previous Rx's ?Medication ?Instructions ?Recorded sulfamethoxazole 800 1 tab PO BID 7 days #14 tabs 03/27/25 mg-trimethoprim 160 mg tablet (Bactrim DS) Ostomy supplies See Rx Instructions .Route 0 03/28/25 .COMPLEX #1 ea nystatin 100,000 unit/gram topical 1 applic topical BI D #60 grams 04/10/25 powder sulfamethoxazole 800 1 tab PO BID 7 days #14 tabs 05/29/25 mg-trimethoprim 160 mg tablet (Bactrim DS) Allergies Allergy/AdvReac Type Severity Reaction Status Date / Time calamine Allergy Severe ALGY-Rash Verified 05/29/25 14:37 calcium carbonate (From DHEA) AdvReac Mild Unknown Verified 05/29/25 14:37 calcium phosphate,dibasic AdvReac Mild Unknown Verified 05/29/25 14:37 (From DHEA) prasterone (DHEA) (From DHEA) AdvReac Mild Unknown Verified 05/29/25 14:37 Review of Systems 2 Const: Denies: fever(s), chills, body aches, fatigue or malaise Card: Denies: chest pain Resp: Denies: dyspnea GI: Denies: nausea or vomiting Skin/Breast: Reports: erythema (around R chest port a cath) PFSH ED 2 PFSH: Surgical History History of hemicolectomy Left hemicolectomy with colostomy formation- 11/27/24 Dr Lundberg History of cholecystectomy No pertinent past surgical history Social History Smoking and tobacco/nicotine status: current every day tobacco/nicotine user Alcohol intake: never Substance/Drug Use: never Physical Exam 2 Const: COMMON NORMALS: no acute distress, average body habitus, patient oriented x3, no limitations, healthy appearing, alert and well nourished G ENERAL APPEARANCE: cooperative ORIENTATION/CONSCIOUSNESS: Yes awake, Yes oriented to person, Yes oriented to place and Yes oriented to time Chest: Chest images (female): 1. minimal erythema to port a cath site; no surrounding cellulitis; no discharge/drainage; small amount 2mm central skin breakdown Resp: COMMON NORMALS: normal respiratory effort and clear to auscultation bilaterally AUSCULTATION: clear to auscultation bilaterally Cardio: COMMON NORMALS: regular rate and regular rhythm RATE: regular rate RHYTHM: regular rhythm : COMMON NORMALS: Yes no CVA tenderness BLADDER/KIDNEY EXAM: Yes no CVA tenderness Back/Pelvis: COMMON NORMALS: no CVA tenderness Neuro: COMMON NORMALS: patient oriented x3 SENSORIUM/ORIENTATION: Yes alert, Yes oriented to person, Yes oriented to place and Yes oriented to time Skin: NARRATIVE SKIN EXAM: see above Course 2 Vital Signs: Vital signs: Vital Signs Temperature 98.2 F 05/29/25 14:34 Pulse Rate 76 05/29/25 14:56 Respiratory Rate 16 05/29/25 14:56 Blood Pressure 125/76 05/29/25 14:34 Pulse Oximetry 99 05/29/25 14:56 Oxygen Delivery Me thod Room Air 05/29/25 14:56 MDM - Skin/Abscess/Foreign Bdy Medicial Decision Making Will cover with antibiotics. She has no systemic symptoms. Will get her f/u with Dr. Davis due to central skin breakdown. Medical Records I reviewed the patient's medical records. No radiology studies performed this visit Discharge Plan Discharge Patient Disposition: Home Clinical Impression: Local infection due to Port-A-Cath Qualifiers: Encounter type: initial encounter Qualified Code(s): T80.212A - Local infection due to central venous catheter, initial encounter Condition: Stable Prescriptions: New sulfamethoxazole-trimethoprim [Bactrim DS] 800-160 mg tablet 1 tab PO BID 7 Days Qty: 14 0RF No Action sulfamethoxazole-trimethoprim [Bactrim DS] 800-160 mg tablet 1 tab PO BID 7 Days Qty: 14 0RF aspirin [Adult Low Dose Aspirin] 81 mg tablet,delayed release (DR/EC) 81 mg PO DAILY Ostomy supplies See Rx Instructions .ROUTE .COMPLEX Qty: 1 5RF Rx Instructions: [id number] High Output Drainable Ostomy Pouch [id number] Closed Mini Ostomy Pouch nystatin 100,000 unit/gram powder 1 applic topical BID Qty: 60 0RF Discharge Orders: Discharge ED (Routine); Ordered 05/29/25 Ordered By: Susan Buchanan Patient Instructions: Patient Portal & Karena Instructions Activity Restrictions/Additional Instructions: As we discussed, I will place a case management referral to get you set up with Dr. Hightowre for follow-up. Please keep area clean, dry, and dressed. You need to return to the emergency department for onset of worsening or spreading redness, fevers, chills, body aches, generally feeling worse or unwell, or any other concerns you may have. Print Language: [place] Leonean Coding Level of Care Code ED Machine Sorter for Santana Schafer
[2025-05-29 14:56] VITALS: PULSE 76; RESP 16; O2SAT 99
[2025-05-29 15:11] VITALS: BP 130/101; PULSE 79; RESP 16; O2SAT 96
--- NOTE | 2025-05-29 15:12 | DCPLANNER ---
messaged gen surg for er f/u
--- OUTSIDE RECORDS SUMMARY | 2025-05-31 11:24 | XMS_ITS | Clinical Summary ---
Author Organization [facility] Cher[facility] tone Address [address] 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 Gender Identity Not on file Sexual Orientation Not on file Occupation Industry Job Start Date Job End Date disabled Not on file Not on file Not on file Last Filed Vital Signs Vital Sign Reading Time Taken Comments Blood Pressure 124/72 10/24/2010 2:39 PM PHOTOENGRAVING SUPERVISOR Pulse 80 05/28/2010 10:09 AM CDT Temperature 36.4 C (97.5 F) 05/28/2010 10:09 AM CDT Respiratory Rate 20 05/28/2010 10:09 AM CDT Oxygen Saturation - - Inhaled Oxygen Concentration - - Weight 86.2 kg (190 lb) 10/24/2010 2:39 PM PHOTOENGRAVING SUPERVISOR Height - - Body Mass Index - [...] 2022 INFLUENZA VACCINE (#1) 2025 Insurance MEDICAID [place] Care Teams Area Development Manager Relationship Specialty Start Date End Date Allison Boyd DO [address] [place] [address] PCP - General 04/12/09
--- OUTSIDE RECORDS SUMMARY | 2025-05-31 11:24 | XMS_ITS | Encounter Summary ---
Author Organization 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 Ramone Pérez M.D. Ramone Pérez M.D. [facility] Electronically Signed by Ramone Pérez M.D. 01/04/2008 08:33 , P, Job #: Document #: [id number] cc: documented in this encounter Plan of Treatment Not on file documented as of this encounter Visit Diagnoses Not on filedocumented in this encounter Care Teams Publication Manager Relationship Specialty Start Date End Date Allison Boyd DO [address] [place] [address] PCP - General 04/12/09 documented as of this encounter
== END 2025-05-29 15:12 | disposition home or self-care (01) ==
PROVIDERS: Emergency Provider Physician Assistant
DX: T80.212A Local infection due to central venous catheter, initial encounter (principal); Z79.82 Long term (current) use of aspirin; Z72.0 Tobacco use; X58.XXXA Exposure to other specified factors, initial encounter
CPT/HCPCS: 99283

== ENCOUNTER → 2025-06-05 15:00 | Outpatient (BNVA) | payer MEDICAID, SELFPAY | PROVIDERS: Visit Provider Student in an Organized Health Care Education/Training Program | DX: T80.212A Local infection due to central venous catheter, initial encounter (principal); Z98.890 Other specified postprocedural states | CPT/HCPCS: 87070; 87075; 87077; 87186; 87205; 88300 ==

== ENCOUNTER 2025-06-20 11:01 | Oncology outpatient (recurring) (ONCR) | payer MEDICAID, SELFPAY ==
[2025-06-20 11:49] LABS: Hematocrit 43.0 % (36-47); Hemoglobin 13.60 g/dL (11.27-16.99); Mean Corpuscular HGB Conc 31.6 g/dL (30-55); Mean Corpuscular Hemoglobin 29.5 pg (27-33); Mean Corpuscular Volume 93.3 fl (85-98); Nucleated Red Blood Cells % 0 %; Platelet Count 218 10^3/cmm (157-399); Red Blood Count 4.61 10^6/uL (3.85-5.65); White Blood Count 11.02 10^3/uL (3.29-11.43)
[2025-06-20 12:30] LABS: Carcinoembryonic Antigen 2.9 ng/mL (0.0-4.7)
[2025-06-20 12:41] LABS: Alanine Aminotransferase 11 U/L (0-33); Albumin Level 4.0 g/dL (3.5-5.2); Alkaline Phosphatase 83 U/L (35-105); Anion Gap 17.2 (5-19); Aspartate Amino Transferase 11 U/L (0-32); Blood Urea Nitrogen 14 mg/dL (6-20); Calcium 9.2 mg/dL (8.5-10.5); Carbon Dioxide 23 mmol/L (22-29); Chloride 105 mmol/L (98-107); Creatinine Clr Calc Pharmacy 207.1703; Globulin 3.2 g/dL (1.3-4.6); Glucose 79 mg/dL (65-115); Osmolality Calculated 291 mOsm/kg (285-295); Potassium 4.2 mmol/L (3.5-5.1); Sodium 141 mmol/L (136-145); Total Protein 7.2 g/dL (6.6-8.7)
== END 2025-07-18 23:59 | disposition home or self-care (01) ==
PROVIDERS: Nurse Practitioner; Visit Provider Internal Medicine
DX: C18.6 Malignant neoplasm of descending colon (principal)
CPT/HCPCS: 36415; 80053; 82378; 83615; 85025

== ENCOUNTER 2025-09-18 12:05 | Oncology outpatient (recurring) (ONCR) | payer MEDICAID, SELFPAY ==
[2025-09-18 12:22] LABS: Hematocrit 43.0 % (36-47); Hemoglobin 14.10 g/dL (11.27-16.99); Mean Corpuscular HGB Conc 32.8 g/dL (30-55); Mean Corpuscular Hemoglobin 29.6 pg (27-33); Mean Corpuscular Volume 90.3 fl (85-98); Nucleated Red Blood Cells % 0 %; Platelet Count 294 10^3/cmm (157-399); Red Blood Count 4.76 10^6/uL (3.85-5.65); White Blood Count 10.71 10^3/uL (3.29-11.43)
[2025-09-18 12:49] LABS: Carcinoembryonic Antigen 3.4 ng/mL (0.0-4.7)
[2025-09-18 13:00] LABS: Alanine Aminotransferase 9 U/L (0-33); Albumin Level 4.0 g/dL (3.5-5.2); Alkaline Phosphatase 96 U/L (35-105); Anion Gap 16.7 (5-19); Aspartate Amino Transferase 12 U/L (0-32); Blood Urea Nitrogen 11 mg/dL (6-20); Calcium 8.6 mg/dL (8.5-10.5); Carbon Dioxide 23 mmol/L (22-29); Chloride 102 mmol/L (98-107); Globulin 3.0 g/dL (1.3-4.6); Glucose 118 mg/dL (65-115); Osmolality Calculated 286 mOsm/kg (285-295); Potassium 3.7 mmol/L (3.5-5.1); Sodium 138 mmol/L (136-145); Total Protein 7.0 g/dL (6.6-8.7)
== END 2025-10-18 23:59 | disposition home or self-care (01) ==
PROVIDERS: Nurse Practitioner; Visit Provider Internal Medicine
DX: C18.6 Malignant neoplasm of descending colon (principal)
CPT/HCPCS: 36415; 80053; 82378; 83615; 85025